=== PATIENT | female | born 1990 | race American Indian/Alaskan Native ===

== ENCOUNTER 2016-10-02 00:45 | Emergency (ER) | payer MEDICAID ==
[2016-10-02 01:46] VITALS: BP 145/93
[2016-10-02 02:47] LABS: Basophils % (Auto) 0.1 % (0.0-1.8); Hemoglobin 11.8 gm/dl (10.1-14.3); Mean Corpuscular HGB Conc 32 % (30-34); Mean Corpuscular Volume 80 fl (79-97); Platelet Count 436 K/mm3 (140-440); Red Blood Count 4.65 M/mm3 (3.65-5.03); Red Cell Distribution Width 17.2 % (13.2-15.2); White Blood Count 15.8 K/mm3 (4.5-11.0)
[2016-10-02 02:49] LABS: Mean Corpuscular Hemoglobin 25 pg (28-32)
[2016-10-02 03:06] LABS: Blood Urea Nitrogen 7 mg/dL (7-17); Calcium 8.8 mg/dL (8.4-10.2); Carbon Dioxide 20 mmol/L (22-30); Glucose 104 mg/dL (65-100)
[2016-10-02 04:21] LABS: Anion Gap 19 mmol/L; Chloride 106.6 mmol/L (98-107); Potassium 3.3 mmol/L (3.6-5.0); Sodium 142 mmol/L (137-145)
== END 2016-10-02 02:30 ==
LOC: ED 00:45
DX: R51 Headache (principal); R46.89 Other symptoms and signs involving appearance and behavior; Z53.21 Procedure and treatment not carried out due to patient leaving prior to being seen by health care provider
CPT/HCPCS: 36415; 80048; 85025; G0480; 80320

== ENCOUNTER 2016-10-08 08:55 | Emergency (ER) | payer MEDICAID ==
[2016-10-08 09:06] VITALS: BP 141/88
[2016-10-08 09:52] LABS: Bacteria,Urine 1+ /HPF (Negative); Bilirubin,Urine NEG (Negative); Blood,Urine NEG (Negative); Ketones,Urine 20 mg/dL (Negative); Leukocyte Esterase,Urine LG (Negative); Mucus,Urine FEW /HPF; Nitrite,Urine NEG (Negative); Urobilinogen,Urine < 2.0 mg/dL (<2.0)
[2016-10-08] MEDS ORDERED: TYLENOL #3 PO ONE (10:53)
--- NOTE | 2016-10-08 11:09 | Emergency Department Report ---
ED ENT HPI - General Chief complaint: Dental/Oral Stated complaint: UTI / POSS TOOTH ABCESS Time Seen by Provider: 10/08/16 10:26 Source: patient Mode of arrival: Ambulatory Limitations: No Limitations - History of Present Illness MD complaint: tooth pain - Related Data Previous Rx's Medication Instructions Recorded Last Taken Type Benzocaine/Menthol [Cepacol Sore 1 each MM QID #20 lozenge 01/18/15 Unknown Rx Throat Lozenge] Clindamycin [Clindamycin CAP] 300 mg PO Q6H #28 capsule 11/18/15 Unknown Rx Ketorolac [Toradol] 10 mg PO Q6H PRN #20 tablet 11/18/15 Unknown Rx Amoxicillin/K Clav Tab [Augmentin 1 tab PO Q12HR #14 tab 01/14/16 Unknown Rx 875 mg] HYDROcodone/APAP 7.5-325 [[place]] 15 ml PO Q4HR PRN #120 ml 01/14/16 Unknown Rx Ibuprofen [Motrin 800 MG tab] 800 mg PO Q8HR PRN #10 tablet 01/14/16 Unknown Rx Amoxicillin [Amoxicillin TAB] 875 mg PO BID #20 tablet 05/05/16 Unknown Rx metroNIDAZOLE [Flagyl] 500 mg PO Q12HR #10 tab 05/05/16 Unknown Rx Cephalexin [Keflex] 500 mg PO Q12HR #14 cap 05/16/16 Unknown Rx Hydrocortisone 1% [Hydrocortisone 1 applicatio TP TID #1 tube 05/16/16 Unknown Rx 1% CREAM] Allergies Allergy/AdvReac Type Severity Reaction Status Date / Time No Known Allergies Allergy Verified 10/08/16 09:01 ED Dental HPI - General Chief complaint: Dental/Oral Stated complaint: UTI / POSS TOOTH ABCESS Time Seen by Provider: 10/08/16 10:26 Source: patient Mode of arrival: Ambulatory Limitations: No Limitations - Related Data Previous Rx's Medication Instructions Recorded Last Taken Type Benzocaine/Menthol [Cepacol Sore 1 each MM QID #20 lozenge 01/18/15 Unknown Rx Throat Lozenge] Clindamycin [Clindamycin CAP] 300 mg PO Q6H #28 capsule 11/18/15 Unknown Rx Ketorolac [Toradol] 10 mg PO Q6H PRN #20 tablet 11/18/15 Unknown Rx Amoxicillin/K Clav Tab [Augmentin 1 tab PO Q12HR #14 tab 01/14/16 Unknown Rx 875 mg] HYDROcodone/APAP 7.5-325 [[place]] 15 ml PO Q4HR PRN #120 ml 01/14/16 Unknown Rx Ibuprofen [Motrin 800 MG tab] 800 mg PO Q8HR PRN #10 tablet 01/14/16 Unknown Rx Amoxicillin [Amoxicillin TAB] 875 mg PO BID #20 tablet 05/05/16 Unknown Rx metroNIDAZOLE [Flagyl] 500 mg PO Q12HR #10 tab 05/05/16 Unknown Rx Cephalexin [Keflex] 500 mg PO Q12HR #14 cap 05/16/16 Unknown Rx Hydrocortisone 1% [Hydrocortisone 1 applicatio TP TID #1 tube 05/16/16 Unknown Rx 1% CREAM] Allergies Allergy/AdvReac Type Severity Reaction Status Date / Time No Known Allergies Allergy Verified 10/08/16 09:01 ED Review of Systems ROS: Stated complaint: UTI / POSS TOOTH ABCESS Other details as noted in HPI ED Past Medical Hx - Past Medical History Hx Seizures: Yes (Ghazal) - Surgical History Additional Surgical History: x1 - Social History Smoking Status: Never Smoker Substance Use Type: None - Medications Home Medications: Home Medications Medication Instructions Recorded Confirmed Last Taken Type Benzocaine/Menthol [Cepacol Sore 1 each MM QID #20 lozenge 01/18/15 Unknown Rx Throat Lozenge] Clindamycin [Clindamycin CAP] 300 mg PO Q6H #28 capsule 11/18/15 Unknown Rx Ketorolac [Toradol] 10 mg PO Q6H PRN #20 tablet 11/18/15 Unknown Rx Amoxicillin/K Clav Tab [Augmentin 1 tab PO Q12HR #14 tab 01/14/16 Unknown Rx 875 mg] HYDROcodone/APAP 7.5-325 [[place]] 15 ml PO Q4HR PRN #120 ml 01/14/16 Unknown Rx Ibuprofen [Motrin 800 MG tab] 800 mg PO Q8HR PRN #10 tablet 01/14/16 Unknown Rx Amoxicillin [Amoxicillin TAB] 875 mg PO BID #20 tablet 05/05/16 Unknown Rx metroNIDAZOLE [Flagyl] 500 mg PO Q12HR #10 tab 05/05/16 Unknown Rx Cephalexin [Keflex] 500 mg PO Q12HR #14 cap 05/16/16 Unknown Rx Hydrocortisone 1% [Hydrocortisone 1 applicatio TP TID #1 tube 05/16/16 Unknown Rx 1% CREAM] ED Physical Exam - General Limitations: No Limitations ED Course Vital Signs 10/08/16 09:02 Temperature 98.1 F Pulse Rate 83 Respiratory 20 Rate Blood Pressure 141/88 O2 Sat by Pulse 100 Oximetry Critical care attestation.: If time is entered above; I have spent that time in minutes in the direct care of this critically ill patient, excluding procedure time. ED Disposition Condition: Stable Referrals: PRIMARY CARE, [Primary Care Provider] - 3-5 Days
--- NOTE | 2016-10-08 12:04 | Emergency Department Report ---
Entered by SARATH SOUZA, acting as scribe for VICTOR HUGO KO PA. ED ENT HPI - General Chief complaint: Dental/Oral Stated complaint: UTI / POSS TOOTH ABCESS Time Seen by Provider: 10/08/16 10:26 Source: patient Mode of arrival: Ambulatory Limitations: No Limitations - History of Present Illness Initial comments: 26 year old female with a PMHx of seizures presents to the ED c/o of right jaw pain that began yesterday secondary to having tooth #29 dental pain that began a month ago. Associated symptoms includes right jaw swelling that began overnight, mild nausea but no vomiting, and a subjective fever, but denies headache and vomiting. Pt states that she cannot chew food due to pain, which she rates a 8 out of 10 in severity. She is able to speak in full sentences and notes that pain radiates to the left side of her jaw. She states that she is currently non-complaint with Keppra after running after out of her medication. LMP 10/04/2016. Aslo c/o mild dysruia x2 days, no fever, chills, no flank pian, no suprapubic pain. Non toxic appearing. MD complaint: tooth pain Onset/Timin -: days(s) Location: tooth # (29) Severity: moderate Severity scale (0 -10): 10 Quality: aching, constant Consistency: constant Worsens with: eating (trouble chewing food) Context- Dental: other (cavity present on tooth #29 ) Associated Symptoms: fever (subjective), toothache (that began 1 month ago), other (chills, right jaw sweilling that began overnight, nausea). denies: pain with swallowing - Related Data Previous Rx's Medication Instructions Recorded Last Taken Type Benzocaine/Menthol [Cepacol Sore 1 each MM QID #20 lozenge 01/18/15 Unknown Rx Throat Lozenge] Clindamycin [Clindamycin CAP] 300 mg PO Q6H #28 capsule 11/18/15 Unknown Rx Ketorolac [Toradol] 10 mg PO Q6H PRN #20 tablet 11/18/15 Unknown Rx Amoxicillin/K Clav Tab [Augmentin 1 tab PO Q12HR #14 tab 01/14/16 Unknown Rx 875 mg] HYDROcodone/APAP 7.5-325 [[place]] 15 ml PO Q4HR PRN #120 ml 01/14/16 Unknown Rx metroNIDAZOLE [Flagyl] 500 mg PO Q12HR #10 tab 05/05/16 Unknown Rx Cephalexin [Keflex] 500 mg PO Q12HR #14 cap 05/16/16 Unknown Rx Hydrocortisone 1% [Hydrocortisone 1 applicatio TP TID #1 tube 05/16/16 Unknown Rx 1% CREAM] Acetaminophen/Codeine [Tylenol #3] 1 tab PO Q6H PRN #10 tab 10/08/16 Unknown Rx Amoxicillin [Amoxicillin TAB] 875 mg PO BID #20 tablet 10/08/16 Unknown Rx Chlorhexidine Mouthwash [Peridex] 118 ml MM BID #1 bottle 10/08/16 Unknown Rx Ibuprofen [Motrin 800 MG tab] 800 mg PO Q8HR PRN #10 tablet 10/08/16 Unknown Rx Nitrofurantoin [place]/M-Cryst 100 mg PO Q12HR #14 capsule 10/08/16 Unknown Rx [Macrobid CAP] Allergies Allergy/AdvReac Type Severity Reaction Status Date / Time No Known Allergies Allergy Verified 10/08/16 09:01 ED Dental HPI - General Chief complaint: Dental/Oral Stated complaint: UTI / POSS TOOTH ABCESS Time Seen by Provider: 10/08/16 10:26 Source: patient Mode of arrival: Ambulatory Limitations: No Limitations - History of Present Illness MD complaint: tooth pain, other (right jaw pain) Onset/Timin -: days(s) Severity: moderate Quality: aching Consistency: constant Worsens with: eating, chewing Context- Dental: other (dental abscess) Dental Associated Symptons: Yes: Fever. No: Headache, Sore Throat - Related Data Previous Rx's Medication Instructions Recorded Last Taken Type Benzocaine/Menthol [Cepacol Sore 1 each MM QID #20 lozenge 01/18/15 Unknown Rx Throat Lozenge] Clindamycin [Clindamycin CAP] 300 mg PO Q6H #28 capsule 11/18/15 Unknown Rx Ketorolac [Toradol] 10 mg PO Q6H PRN #20 tablet 11/18/15 Unknown Rx Amoxicillin/K Clav Tab [Augmentin 1 tab PO Q12HR #14 tab 01/14/16 Unknown Rx 875 mg] HYDROcodone/APAP 7.5-325 [[place]] 15 ml PO Q4HR PRN #120 ml 01/14/16 Unknown Rx metroNIDAZOLE [Flagyl] 500 mg PO Q12HR #10 tab 05/05/16 Unknown Rx Cephalexin [Keflex] 500 mg PO Q12HR #14 cap 05/16/16 Unknown Rx Hydrocortisone 1% [Hydrocortisone 1 applicatio TP TID #1 tube 05/16/16 Unknown Rx 1% CREAM] Acetaminophen/Codeine [Tylenol #3] 1 tab PO Q6H PRN #10 tab 10/08/16 Unknown Rx Amoxicillin [Amoxicillin TAB] 875 mg PO BID #20 tablet 10/08/16 Unknown Rx Chlorhexidine Mouthwash [Peridex] 118 ml MM BID #1 bottle 10/08/16 Unknown Rx Ibuprofen [Motrin 800 MG tab] 800 mg PO Q8HR PRN #10 tablet 10/08/16 Unknown Rx Nitrofurantoin [place]/M-Cryst 100 mg PO Q12HR #14 capsule 10/08/16 Unknown Rx [Macrobid CAP] Allergies Allergy/AdvReac Type Severity Reaction Status Date / Time No Known Allergies Allergy Verified 10/08/16 09:01 ED Review of Systems Comment: All other systems reviewed and negative Constitutional: chills, fever (subjective) ENT: dental pain (tooth #29). denies: throat pain Gastrointestinal: nausea. denies: vomiting Genitourinary: dysuria, frequency Skin: other (right jaw edema) Neurological: denies: headache ED Past Medical Hx - Past Medical History Hx Seizures: Yes (Ghazal) - Surgical History Additional Surgical History: x1 - Social History Smoking Status: Never Smoker Substance Use Type: None - Medications Home Medications: Home Medications Medication Instructions Recorded Confirmed Last Taken Type Benzocaine/Menthol [Cepacol Sore 1 each MM QID #20 lozenge 01/18/15 Unknown Rx Throat Lozenge] Clindamycin [Clindamycin CAP] 300 mg PO Q6H #28 capsule 11/18/15 Unknown Rx Ketorolac [Toradol] 10 mg PO Q6H PRN #20 tablet 11/18/15 Unknown Rx Amoxicillin/K Clav Tab [Augmentin 1 tab PO Q12HR #14 tab 01/14/16 Unknown Rx 875 mg] HYDROcodone/APAP 7.5-325 [[place]] 15 ml PO Q4HR PRN #120 ml 01/14/16 Unknown Rx metroNIDAZOLE [Flagyl] 500 mg PO Q12HR #10 tab 05/05/16 Unknown Rx Cephalexin [Keflex] 500 mg PO Q12HR #14 cap 05/16/16 Unknown Rx Hydrocortisone 1% [Hydrocortisone 1 applicatio TP TID #1 tube 05/16/16 Unknown Rx 1% CREAM] Acetaminophen/Codeine [Tylenol #3] 1 tab PO Q6H PRN #10 tab 10/08/16 Unknown Rx Amoxicillin [Amoxicillin TAB] 875 mg PO BID #20 tablet 10/08/16 Unknown Rx Chlorhexidine Mouthwash [Peridex] 118 ml MM BID #1 bottle 10/08/16 Unknown Rx Ibuprofen [Motrin 800 MG tab] 800 mg PO Q8HR PRN #10 tablet 10/08/16 Unknown Rx Nitrofurantoin [place]/M-Cryst 100 mg PO Q12HR #14 capsule 10/08/16 Unknown Rx [Macrobid CAP] ED Physical Exam - General Limitations: No Limitations General appearance: alert, in no apparent distress, other (Pt is able to speak in full sentences) - Head Head exam: Present: atraumatic, normocephalic - Eye Eye exam: Present: normal appearance, EOMI - ENT ENT exam: Present: normal exam, mucous membranes moist, other (NO induration on floor of mouth below tongue on palpation, no ludwigs angina on clincal exam, no drooling, no trismus) - Expanded ENT Exam Expanded Mouth exam: Present: other (no induration is floor of mouth but induration present adjacent to tooth #29, no cellulitis) Throat exam: Positive: normal inspection (no CLINICAL EDUCATOR, uvula midline), other (uvula is midline, no peritonsillar abscess present, oral pharynx patent and open) - Neck Neck exam: Present: normal inspection, full ROM. Absent: lymphadenopathy - Respiratory Respiratory exam: Present: normal lung sounds bilaterally. Absent: respiratory distress - Cardiovascular Cardiovascular Exam: Present: regular rate, normal rhythm - GI/Abdominal GI/Abdominal exam: Present: soft. Absent: distended - Extremities Exam Extremities exam: Present: normal inspection, full ROM - Back Exam Back exam: Present: normal inspection, full ROM, other (no cva pain on exam) - Neurological Exam Neurological exam: Present: alert, oriented X3, CN II-XII intact, normal gait - Psychiatric Psychiatric exam: Present: normal affect, normal mood - Skin Skin exam: Present: warm, dry, intact, other (right jaw edema, no induration is floor of mouth but induration present adjacent to tooth #29, no cellulitis, no peritonsillar abscess) ED Course Vital Signs 10/08/16 10/08/16 09:02 11:00 Temperature 98.1 F Pulse Rate 83 Respiratory 20 20 Rate Blood Pressure 141/88 O2 Sat by Pulse 100 Oximetry ED Medical Decision Making - Medical Decision Making A/P: Dental cavity, small dental abscess, UTI, keppra refill 1-Motrin, Tylenol 3, amoxicillin 10 days, Peridex mouthwash 2-patient advised to follow up as soon as possible for dental cavity. I advised patient that lack of follow-up and untreated dental cavity can result in infection of the face and jaw and if left untreated can progress to sepsis and become lethal. Patient understood these instructions and agreed to follow- up on outpatient basis with dentist as soon as possible. States she can see a dentisit on monday 3-advised to return to ED [facility] for any significant bleeding pus drainage from oral cavity inability to tolerate by mouth, dyspnea shortness of breath muffled voice and/or stridor 4- will treat empirically for UTI with macrobid, based on symptoms and UA 6- [facility] Disposition Clinical Impression: Dental abscess, Dental caries Disposition: DISCHARGED TO HOME OR SELFCARE Is pt being admited?: No Does the pt Need Aspirin: No Condition: Stable Instructions: Urinary Tract Infection in Women (ED), Dental Abscess (ED), Dental Caries (ED), Toothache (ED) Additional Instructions: [email or web address] Prescriptions: Acetaminophen/Codeine [Tylenol #3] 1 tab PO Q6H PRN #10 tab PRN Reason: Toothache Amoxicillin [Amoxicillin TAB] 875 mg PO BID #20 tablet Chlorhexidine Mouthwash [Peridex] 118 ml MM BID #1 bottle Ibuprofen [Motrin 800 MG tab] 800 mg PO Q8HR PRN #10 tablet PRN Reason: anti-inflammatory/pain/fever Nitrofurantoin [place]/M-Cryst [Macrobid CAP] 100 mg PO Q12HR #14 capsule Referrals: [facility] [Outside] - 3-5 Days Forms: Work/School Release Form(ED) This documentation as recorded by the HARLEY mcknight JASMINE,accurately reflects the service I personally performed and the decisions made by ,VICTOR HUGO KO, PA.
== END 2016-10-08 11:35 | disposition home or self-care (01) ==
LOC: ED 08:55
DX: K04.7 Periapical abscess without sinus (principal); K02.9 Dental caries, unspecified
CPT/HCPCS: 81001; 81025; 99283

== ENCOUNTER 2016-11-04 03:39 | Emergency (ER) | payer MEDICAID ==
[2016-11-04 04:51] LABS: Basophils % (Auto) 0.2 % (0.0-1.8); Eosinophils % (Auto) 0.2 % (0.0-4.3); Hematocrit 34.4 % (30.3-42.9); Hemoglobin 10.9 gm/dl (10.1-14.3); Mean Corpuscular HGB Conc 32 % (30-34); Mean Corpuscular Volume 80 fl (79-97); Platelet Count 329 K/mm3 (140-440); Red Cell Distribution Width 16.6 % (13.2-15.2)
[2016-11-04 04:53] LABS: Mean Corpuscular Hemoglobin 25 pg (28-32)
[2016-11-04 05:02] LABS: Anion Gap 20 mmol/L; Blood Urea Nitrogen 8 mg/dL (7-17); Calcium 8.8 mg/dL (8.4-10.2); Carbon Dioxide 22 mmol/L (22-30); Chloride 103.5 mmol/L (98-107); Glucose 97 mg/dL (65-100); Potassium 3.4 mmol/L (3.6-5.0); Sodium 142 mmol/L (137-145)
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
[2016-11-04 06:33] LABS: Urine Drugs of Abuse Note Disclamer
[2016-11-04 06:48] LABS: Bilirubin,Urine NEG (Negative); Blood,Urine NEG (Negative); Ketones,Urine TR mg/dL (Negative); Leukocyte Esterase,Urine TR (Negative); Mucus,Urine FEW /HPF; Nitrite,Urine NEG (Negative); Protein,Urine <15 mg/dL mg/dL (Negative); Urobilinogen,Urine < 2.0 mg/dL (<2.0)
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
[2016-11-04] MEDS ORDERED: XYLOCAINE 1%/ EPI 1:100,000 INFILTRATI ONE (07:33)
[2016-11-04] MEDS ORDERED: FUL-GLO OP ONE ×2 (07:35→09:56)
[2016-11-04] MEDS ORDERED: TETRACAINE 0.5% ONE (07:35)
[2016-11-04] MEDS ORDERED: BSS ONE (07:35)
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
[2016-11-04] MEDS ORDERED: ZOFRAN IV ONE (07:52)
[2016-11-04] MEDS ORDERED: MORPHINE IV ONE (07:52)
[2016-11-04] MEDS ORDERED: K-DUR PO ONE (11:00)
[2016-11-04 11:18] VITALS: BP 120/63
== END 2016-11-04 11:26 | disposition home or self-care (01) ==
LOC: ED 03:39
DX: S06.0X9A Concussion with loss of consciousness of unspecified duration, initial encounter (principal); S05.41XA Penetrating wound of orbit with or without foreign body, right eye, initial encounter; S00.11XA Contusion of right eyelid and periocular area, initial encounter; H11.31 Conjunctival hemorrhage, right eye; S00.211A Abrasion of right eyelid and periocular area, initial encounter; F10.129 Alcohol abuse with intoxication, unspecified; E87.6 Hypokalemia; Y08.89XA Assault by other specified means, initial encounter; Y93.9 Activity, unspecified; Y92.89 Other specified places as the place of occurrence of the external cause; Y99.9 Unspecified external cause status
CPT/HCPCS: 12013; 36415; 70450; 70486; 71010; 72125; 72170; 80048; 80307; 81001; 84703; 85025; 96374; 96375; 99285; G0480; J2270; J2405; 80320

== ENCOUNTER 2016-11-10 13:40 | Emergency (ER) | payer MEDICAID ==
[2016-11-10 14:26] VITALS: BP 120/76
--- NOTE | 2016-11-10 14:41 | Emergency Department Report ---
Suture/Staple Removal - HPI Chief Complaint: Laceration/Recheck/Suture Stated Complaint: SUTURE REMOVAL Time Seen by Provider: 11/10/16 14:38 When Sutures or Joanna Placed: 5-7 Days Ago Wound Location: right lateral corner of eye ED Review of Systems ROS: Stated complaint: SUTURE REMOVAL Other details as noted in HPI Comment: All other systems reviewed and negative ED Past Medical Hx - Past Medical History Hx Seizures: Yes (Keppra) - Surgical History Additional Surgical History: x1 - Social History Smoking Status: Never Smoker Substance Use Type: None - Medications Home Medications: Home Medications Medication Instructions Recorded Confirmed Last Taken Type HYDROcodone/APAP 5-325 [[place] 1 each PO Q6HR PRN #20 tablet 11/04/16 11/10/16 Unknown Rx 5/325] Suture Removal Exam - Exam General: Vital signs noted. No distress. Alert and acting appropriately. Wound: No Pathologic Erythema, No Tenderness, No Drainage, No Pus, No Wound Dehiscence Other Systems: All other systems reviewed and are unremarkable. ED Course Vital Signs 11/10/16 14:23 Temperature 98.3 F Pulse Rate 72 Respiratory 19 Rate Blood Pressure 120/76 O2 Sat by Pulse 100 Oximetry ED Recheck MDM - Medical Decision Making Patient has been evaluated by this provider fast track. With a was removed 3 sutures out of the right lateral corner of her eye. Patient has no other complaints at this time. Critical care attestation.: If time is entered above; I have spent that time in minutes in the direct care of this critically ill patient, excluding procedure time. ED Disposition Clinical Impression: Encounter for removal of sutures Disposition: DISCHARGED TO HOME OR SELFCARE Is pt being admited?: No Does the pt Need Aspirin: No Additional Instructions: You can clean the area with warm soap and water. Referrals: PRIMARY CARE, [Primary Care Provider] - 3-5 Days
== END 2016-11-10 14:45 | disposition home or self-care (01) ==
LOC: ED 13:40
DX: S01.91XD Laceration without foreign body of unspecified part of head, subsequent encounter (principal); R56.9 Unspecified convulsions; X58.XXXD Exposure to other specified factors, subsequent encounter; Y99.9 Unspecified external cause status; Y92.9 Unspecified place or not applicable

== ENCOUNTER 2017-01-02 23:58 | Emergency (ER) | payer MEDICAID ==
[2017-01-03 04:10] LABS: Bacteria,Urine 1+ /HPF (Negative); Bilirubin,Urine NEG (Negative); Blood,Urine NEG (Negative); Ketones,Urine TR mg/dL (Negative); Leukocyte Esterase,Urine MOD (Negative); Mucus,Urine FEW /HPF; Nitrite,Urine NEG (Negative); Protein,Urine <15 mg/dL mg/dL (Negative)
[2017-01-03] MEDS ORDERED: XYLOCAINE 1% MPF 5 mL INFILTRATI ONE (04:30)
[2017-01-03] MEDS ORDERED: ROCEPHIN IM STA (04:30)
--- NOTE | 2017-01-03 04:30 | Emergency Department Report ---
ED Female HPI - General Chief complaint: Urogenital-Female Stated complaint: UTI Time Seen by Provider: 01/03/17 03:49 Source: patient, family Mode of arrival: Ambulatory Limitations: No Limitations - History of Present Illness Initial comments: Patient here reports that she thinks she has a urinary tract infection. She reports that her urine is dark and she has some discomfort today urinated. She reports that she had episode of dysuria. She said she had some itching in in her vaginal area before cycle which has resolved. Patient is just coming off her cycle. She said her cycle ended yesterday and itching went away. Denies any abdominal or back pain. Denies any vaginal discharge. She has no concerns for STDs. She has nose concerns her because she said she is not sexually active at present. Denies any fever or chills. Denies any nausea or vomiting. Denies any pain at present. MD Complaint: dysuria Onset/Timin -: days(s) Severity scale (0 -10): 0 Are you Now?: No Last Menstrual Period: 12/31/16 EDC: 10/07/17 Associated Symptoms: dysuria, other (dark urine). denies: vaginal discharge, vaginal bleeding, abdominal pain, nausea/vomiting, fever/chills, headaches, loss of appetite, hematuria, rash, seizure, shortness of breath, syncope, weakness - Related Data Sexually active: No Previous Rx's Medication Instructions Recorded Last Taken Type HYDROcodone/APAP 5-325 [[place] 1 each PO Q6HR PRN #20 tablet 11/04/16 Unknown Rx 5/325] Nitrofurantoin [place]/M-Cryst 100 mg PO Q12HR #14 capsule 01/03/17 Unknown Rx [Macrobid CAP] Allergies Allergy/AdvReac Type Severity Reaction Status Date / Time No Known Allergies Allergy Verified 11/10/16 14:22 ED Review of Systems ROS: Stated complaint: UTI Other details as noted in HPI Comment: All other systems reviewed and negative Constitutional: denies: chills, fever Respiratory: no symptoms reported Cardiovascular: denies: chest pain, palpitations, edema, syncope Gastrointestinal: denies: abdominal pain, nausea, vomiting Genitourinary: dysuria, other (arc urine). denies: urgency, frequency, hematuria, discharge, abnormal menses Musculoskeletal: denies: back pain, joint swelling, arthralgia, myalgia Skin: denies: rash Neurological: denies: headache, weakness, numbness, paresthesias, confusion, abnormal gait, vertigo ED Past Medical Hx - Past Medical History Previous Medical History?: Yes Hx Seizures: Yes (Ghazal) - Surgical History Past Surgical History?: Yes Additional Surgical History: x1 - Family History Family history: hypertension - Social History Smoking Status: Former Smoker Substance Use Type: None - Medications Home Medications: Home Medications Medication Instructions Recorded Confirmed Last Taken Type HYDROcodone/APAP 5-325 [[place] 1 each PO Q6HR PRN #20 tablet 11/04/16 11/10/16 Unknown Rx 5/325] Nitrofurantoin [place]/M-Cryst 100 mg PO Q12HR #14 capsule 01/03/17 Unknown Rx [Macrobid CAP] ED Physical Exam - General Limitations: No Limitations General appearance: alert, in no apparent distress - Head Head exam: Present: atraumatic, normocephalic, normal inspection - Neck Neck exam: Present: normal inspection, full ROM. Absent: tenderness, lymphadenopathy - Respiratory Respiratory exam: Present: normal lung sounds bilaterally. Absent: respiratory distress, chest wall tenderness - Cardiovascular Cardiovascular Exam: Present: regular rate, normal rhythm, normal heart sounds - GI/Abdominal GI/Abdominal exam: Present: soft, normal bowel sounds. Absent: distended, tenderness, guarding, rebound, rigid - Extremities Exam Extremities exam: Present: normal inspection, full ROM, normal capillary refill. Absent: tenderness, pedal edema, joint swelling, calf tenderness - Back Exam Back exam: Present: normal inspection, full ROM. Absent: tenderness, CVA tenderness (R), CVA tenderness (L), muscle spasm, paraspinal tenderness, vertebral tenderness, rash noted - Neurological Exam Neurological exam: Present: alert, oriented X3, normal gait, reflexes normal. Absent: motor sensory deficit - Psychiatric Psychiatric exam: Present: normal affect, normal mood - Skin Skin exam: Present: warm, dry, intact, normal color. Absent: rash ED Course Vital Signs 01/03/17 01/03/17 02:09 05:31 Temperature 98.6 F Pulse Rate 97 H 73 Respiratory 20 18 Rate Blood Pressure 126/81 Blood Pressure 133/84 [Left] O2 Sat by Pulse 99 100 Oximetry - Reevaluation(s) Reevaluation #1: 01/03/17 05:19 Patient with urinary tract infection and she was given Rocephin 1 g IM and emergency room. ED Medical Decision Making - Lab Data Lab Results 01/03/17 Range/Units 02:17 Urine Color Yellow (Yellow) Urine Turbidity Clear (Clear) Urine pH 6.0 (5.0-7.0) Ur Specific [place] 1.009 (1.003-1.030) Urine Protein <15 mg/dl (Negative) mg/dL Urine Glucose (UA) Neg (Negative) mg/dL Urine Ketones Tr (Negative) mg/dL Urine Blood Neg (Negative) Urine Nitrite Neg (Negative) Urine Bilirubin Neg (Negative) Urine Urobilinogen 2.0 (<2.0) mg/dL Ur Leukocyte Esterase Mod (Negative) Urine WBC (Auto) 4.0 (0.0-6.0) /HPF Urine RBC (Auto) 4.0 (0.0-6.0) /HPF U Epithel Cells (Auto) 2.0 (0-13.0) /HPF Urine Bacteria (Auto) 1+ (Negative) /HPF Urine Mucus Few /HPF Urine culture pending Critical care attestation.: If time is entered above; I have spent that time in minutes in the direct care of this critically ill patient, excluding procedure time. ED Disposition Clinical Impression: Acute cystitis without hematuria, Dysuria Disposition: - TO HOME OR SELFCARE Is pt being admited?: No Does the pt Need Aspirin: No Condition: Stable Instructions: Urinary Tract Infection in Women (ED), Dysuria (ED) Additional Instructions: Please increase her fluid intake to 2-3 L of water per day. Take antibiotic as prescribed. Up with your primary care physician in 7-10 days and if he do not have one you can follow up at [facility] Prescriptions: Nitrofurantoin [place]/M-Cryst [Macrobid CAP] 100 mg PO Q12HR #14 capsule Referrals: [facility] [Outside] - 7-10 days PRIMARY CARE, [Primary Care Provider] - 7-10 days Forms: Accompanied Note, Work/School Release Form(ED)
[2017-01-03 05:32] VITALS: BP 133/84
== END 2017-01-03 05:33 | disposition home or self-care (01) ==
LOC: ED 23:58
DX: N30.00 Acute cystitis without hematuria (principal); I10 Essential (primary) hypertension; Z87.891 Personal history of nicotine dependence
CPT/HCPCS: 81001; 87086; 96372; 99283; J0696

== ENCOUNTER 2017-01-12 03:13 | Emergency (ER) | payer MEDICAID ==
[2017-01-12 03:48] LABS: Basophils % (Auto) 0.5 % (0.0-1.8); Eosinophils % (Auto) 0.7 % (0.0-4.3); Hematocrit 35.5 % (30.3-42.9); Hemoglobin 11.5 gm/dl (10.1-14.3); Mean Corpuscular HGB Conc 33 % (30-34); Mean Corpuscular Hemoglobin 26 pg (28-32); Mean Corpuscular Volume 80 fl (79-97); Platelet Count 377 K/mm3 (140-440); Red Blood Count 4.43 M/mm3 (3.65-5.03); Red Cell Distribution Width 14.6 % (13.2-15.2); White Blood Count 7.2 K/mm3 (4.5-11.0)
[2017-01-12 04:07] LABS: Anion Gap 16 mmol/L; Blood Urea Nitrogen 11 mg/dL (7-17); Calcium 9.1 mg/dL (8.4-10.2); Carbon Dioxide 25 mmol/L (22-30); Chloride 101.5 mmol/L (98-107); Glucose 108 mg/dL (65-100); Potassium 3.9 mmol/L (3.6-5.0); Sodium 139 mmol/L (137-145)
--- NOTE | 2017-01-12 08:12 | Emergency Department Report ---
ED Seizure HPI - General Chief Complaint: Syncope Stated Complaint: SYNCOPAL EPISODE Time Seen by Provider: 01/12/17 08:10 Source: patient Mode of arrival: Ambulatory Limitations: No Limitations - History of Present Illness Initial Comments: Patient presents with her significant other. She has been noncompliant with her Her for one year. She was on Keppra for many years. She was on the way to the bathroom when she developed some shaking movements that were witnessed by her friend. She began to fall but did not have any prolonged loss of consciousness. She is asymptomatic at this time. She stated that she had a minimal headache prior which has resolved. She is asymptomatic at this time. He has had previous neuro imaging without any brain abnormality reported to her. She hasn't had a seizure she says since 2014. Her previous seizures were apparently generalized. Complaint: possible seizure -: Sudden Description of Episode: other (boyfriend states that it was very brief and he couldn't describe it) -: second(s) Witnessed:: Yes Trauma: No Seizure History: known seizure disorder Place: home, work Associated Symptoms: denies other symptoms Treatments Prior to Arrival: none - Related Data Previous Rx's Medication Instructions Recorded Last Taken Type HYDROcodone/APAP 5-325 [[place] 1 each PO Q6HR PRN #20 tablet 11/04/16 Unknown Rx 5/325] Nitrofurantoin [place]/M-Cryst 100 mg PO Q12HR #14 capsule 01/03/17 Unknown Rx [Macrobid CAP] levETIRAcetam [Keppra TAB] 500 mg PO BID #60 tablet 01/12/17 Unknown Rx Allergies Allergy/AdvReac Type Severity Reaction Status Date / Time No Known Allergies Allergy Verified 11/10/16 14:22 ED Review of Systems ROS: Stated complaint: SYNCOPAL EPISODE Other details as noted in HPI Constitutional: denies: chills, fever Eyes: denies: eye pain, eye discharge, vision change ENT: denies: ear pain, throat pain Respiratory: denies: cough, shortness of breath, wheezing Cardiovascular: denies: chest pain, palpitations Endocrine: no symptoms reported Gastrointestinal: denies: abdominal pain, nausea, diarrhea Genitourinary: denies: urgency, dysuria, discharge Musculoskeletal: denies: back pain, joint swelling, arthralgia Skin: denies: rash, lesions Neurological: headache (now resolved). denies: weakness, paresthesias Psychiatric: denies: anxiety, depression Hematological/Lymphatic: denies: easy bleeding, easy bruising ED Past Medical Hx - Past Medical History Previous Medical History?: Yes Hx Seizures: Yes (Keppra) - Surgical History Past Surgical History?: Yes Additional Surgical History: x1 - Social History Smoking Status: Never Smoker Substance Use Type: Alcohol - Medications Home Medications: Home Medications Medication Instructions Recorded Confirmed Last Taken Type HYDROcodone/APAP 5-325 [[place] 1 each PO Q6HR PRN #20 tablet 11/04/16 11/10/16 Unknown Rx 5/325] Nitrofurantoin [place]/M-Cryst 100 mg PO Q12HR #14 capsule 01/03/17 Unknown Rx [Macrobid CAP] levETIRAcetam [Keppra TAB] 500 mg PO BID #60 tablet 01/12/17 Unknown Rx ED Physical Exam - General Limitations: No Limitations General appearance: alert, in no apparent distress - Head Head exam: Present: atraumatic, normocephalic - Eye Eye exam: Present: normal appearance, PERRL, EOMI. Absent: scleral icterus - ENT ENT exam: Present: mucous membranes moist - Neck Neck exam: Present: normal inspection. Absent: tenderness, meningismus - Respiratory Respiratory exam: Present: normal lung sounds bilaterally. Absent: respiratory distress - Cardiovascular Cardiovascular Exam: Present: regular rate, normal rhythm. Absent: systolic murmur, diastolic murmur, rubs, gallop - GI/Abdominal GI/Abdominal exam: Present: soft, normal bowel sounds. Absent: distended, tenderness, guarding, rebound, rigid - Extremities Exam Extremities exam: Present: normal inspection - Back Exam Back exam: Present: normal inspection - Neurological Exam Neurological exam: Present: alert, oriented X3, CN II-XII intact. Absent: motor sensory deficit - Psychiatric Psychiatric exam: Present: normal affect, normal mood - Skin Skin exam: Present: warm, dry, intact, normal color. Absent: rash ED Course Vital Signs 01/12/17 01/12/17 03:17 08:12 Temperature 98.7 F 98.1 F Pulse Rate 97 H 72 Respiratory 20 17 Rate Blood Pressure 137/80 Blood Pressure 118/70 [Left] O2 Sat by Pulse 100 100 Oximetry - Reevaluation(s) Reevaluation #1: Patient was observed without further incident. She was restarted on oral Keppra. 01/12/17 08:32 ED Medical Decision Making - Lab Data Result diagrams: 01/12/17 03:35 01/12/17 03:35 Laboratory Results - last 24 hr 01/12/17 01/12/17 01/12/17 03:35 03:35 03:35 WBC 7.2 RBC 4.43 Hgb 11.5 Hct 35.5 MCV 80 MCH 26 L MCHC 33 RDW 14.6 Plt Count 377 Lymph % (Auto) 29.7 [place] % (Auto) 10.4 H Eos % (Auto) 0.7 Baso % (Auto) 0.5 Lymph # 2.1 [place] # 0.8 Eos # 0.1 Baso # 0.0 Seg Neutrophils % 58.7 Seg Neutrophils # 4.2 Sodium 139 Potassium 3.9 Chloride 101.5 Carbon Dioxide 25 Anion Gap 16 BUN 11 Creatinine 0.4 L Estimated GFR > 60 BUN/Creatinine Ratio 27.50 Glucose 108 H Calcium 9.1 HCG, Qual Negative - EKG Data -: EKG Interpreted by Nd EKG shows normal: sinus rhythm, axis, intervals, QRS complexes, ST-T waves Rate: normal - EKG Data Interpretation: LVH (somewhat increased voltage left atrial enlargement consider LVH.) Critical care attestation.: If time is entered above; I have spent that time in minutes in the direct care of this critically ill patient, excluding procedure time. ED Disposition Clinical Impression: Seizure, Seizure disorder Disposition: DC-01 TO HOME OR SELFCARE Is pt being admited?: No Does the pt Need Aspirin: No Condition: Stable Instructions: Recurrent Seizures Adult (ED) Additional Instructions: Do not drive until you're cleared by the neurologist. See referral. Rx Keppra. Prescriptions: levETIRAcetam [Keppra TAB] 500 mg PO BID #60 tablet Referrals: PRIMARY MD LUCINDA [Primary Care Provider] - 3-5 Days PREM LINN MD [Staff Physician] - 3-5 Days [facility] [Provider Group] - 3-5 Days Time of Disposition: 08:36
[2017-01-12 08:16] VITALS: BP 118/70
[2017-01-12] MEDS ORDERED: KEPPRA PO ONE (08:36)
== END 2017-01-12 09:08 | disposition home or self-care (01) ==
LOC: ED 03:13
DX: G40.909 Epilepsy, unspecified, not intractable, without status epilepticus (principal)
CPT/HCPCS: 36415; 80048; 84703; 85025; 93005; 93010; 99283

== ENCOUNTER 2017-08-10 19:14 | Emergency (ER) | payer MEDICAID ==
[2017-08-10 21:00] LABS: Bacteria,Urine 1+ /HPF (Negative); Bilirubin,Urine NEG (Negative); Blood,Urine NEG (Negative); Color,Urine Yellow (Yellow); Mucus,Urine 2+ /HPF; Nitrite,Urine NEG (Negative); Protein,Urine <15 mg/dL mg/dL (Negative); Urobilinogen,Urine < 2.0 mg/dL (<2.0)
[2017-08-10 21:01] LABS: HCG Qualitative,Urine Negative (Negative)
--- NOTE | 2017-08-10 22:34 | Emergency Department Report ---
ED Female HPI - General Chief complaint: Urogenital-Female Stated complaint: VAG IRITATION Time Seen by Provider: 08/10/17 21:36 Source: patient Mode of arrival: Ambulatory Limitations: No Limitations - History of Present Illness Initial comments: This is a 27-year-old female nontoxic, well nourished in appearance, no acute signs of distress presents to the ED with c/o of vaginal itching and discomfort x4 days. Patient stated went yesterday to the store and bought OTC monostat as she thinks it can be yeast and has no relief. Patient denies any vaginal discharge, vaginal bleeding, dysuria, polyuria, hematuria, abdominal pain, back pain pain, fever, chills, nausea, vomiting, chest pain or shortness of breath. Patient denies any drug allergies. Past medical history includes seizures. MD Complaint: other (vaginal itching and discomfort) -: days(s) (4) Radiation: non-radiating Severity: mild Severity scale (0 -10): 8 Quality: other (itching) Consistency: constant Improves with: none Worsens with: none Are you Now?: No Last Menstrual Period: 07/17/17 EDC: 04/23/18 Associated Symptoms: denies other symptoms. denies: vaginal discharge, vaginal bleeding, abdominal pain, nausea/vomiting, fever/chills, headaches, loss of appetite, dysuria, hematuria, rash, seizure, shortness of breath, syncope, weakness - Related Data Previous Rx's Medication Instructions Recorded Last Taken Type HYDROcodone/APAP 5-325 [[place] 1 each PO Q6HR PRN #20 tablet 11/04/16 Unknown Rx 5/325] Nitrofurantoin [place]/M-Cryst 100 mg PO Q12HR #14 capsule 01/03/17 Unknown Rx [Macrobid CAP] levETIRAcetam [Keppra TAB] 500 mg PO BID #60 tablet 01/12/17 Unknown Rx Fluconazole [Diflucan TAB] 150 mg PO ONCE #2 tablet 08/10/17 Unknown Rx Allergies Allergy/AdvReac Type Severity Reaction Status Date / Time No Known Allergies Allergy Verified 11/10/16 14:22 ED Review of Systems ROS: Stated complaint: VAG IRITATION Other details as noted in HPI Constitutional: denies: chills, fever Eyes: denies: eye pain, eye discharge, vision change ENT: denies: ear pain, throat pain Respiratory: denies: cough, shortness of breath, wheezing Cardiovascular: denies: chest pain, palpitations Endocrine: no symptoms reported Gastrointestinal: denies: abdominal pain, nausea, diarrhea Genitourinary: other (vaginal itching). denies: urgency, dysuria, discharge Musculoskeletal: denies: back pain, joint swelling, arthralgia Skin: denies: rash, lesions Neurological: denies: headache, weakness, paresthesias Psychiatric: denies: anxiety, depression Hematological/Lymphatic: denies: easy bleeding, easy bruising ED Past Medical Hx - Past Medical History Previous Medical History?: Yes Hx Seizures: Yes (Keppra) - Surgical History Past Surgical History?: Yes Additional Surgical History: x1 - Social History Smoking Status: Current Some Day Smoker Substance Use Type: None - Medications Home Medications: Home Medications Medication Instructions Recorded Confirmed Last Taken Type HYDROcodone/APAP 5-325 [[place] 1 each PO Q6HR PRN #20 tablet 11/04/16 11/10/16 Unknown Rx 5/325] Nitrofurantoin [place]/M-Cryst 100 mg PO Q12HR #14 capsule 01/03/17 Unknown Rx [Macrobid CAP] levETIRAcetam [Keppra TAB] 500 mg PO BID #60 tablet 01/12/17 Unknown Rx Fluconazole [Diflucan TAB] 150 mg PO ONCE #2 tablet 08/10/17 Unknown Rx ED Physical Exam - General Limitations: No Limitations General appearance: alert, in no apparent distress - Head Head exam: Present: atraumatic, normocephalic - Eye Eye exam: Present: normal appearance - ENT ENT exam: Present: mucous membranes moist - Neck Neck exam: Present: normal inspection - Respiratory Respiratory exam: Present: normal lung sounds bilaterally. Absent: respiratory distress - Cardiovascular Cardiovascular Exam: Present: regular rate, normal rhythm. Absent: systolic murmur, diastolic murmur, rubs, gallop - GI/Abdominal GI/Abdominal exam: Present: soft, normal bowel sounds. Absent: distended, tenderness, guarding, rebound, rigid, diminished bowel sounds - Rectal Rectal exam: Present: normal inspection - External exam: Present: normal external exam, other (chaperoned Dominga senior data architect present during exam). Absent: erythema, swelling, lesions, lacerations, ecchymosis, bleeding Speculum exam: Present: normal speculum exam, other (chaperoned Dominga senior data architect present during exam). Absent: erythema, vaginal discharge, cervical discharge, vaginal bleeding, foreign body, tissue, laceration Bi-manual exam: Present: normal bi-manual exam, other (chaperoned Dominga senior data architect present during exam). Absent: cervical motion tendernes, adnexal tenderness, adnexal mass, uterine enlargement, uterine tenderness - Extremities Exam Extremities exam: Present: normal inspection, full ROM, normal capillary refill - Back Exam Back exam: Present: normal inspection, full ROM. Absent: tenderness, CVA tenderness (R), CVA tenderness (L), muscle spasm, paraspinal tenderness, vertebral tenderness, rash noted - Neurological Exam Neurological exam: Present: alert, oriented X3, CN II-XII intact, normal gait, reflexes normal - Psychiatric Psychiatric exam: Present: normal affect, normal mood - Skin Skin exam: Present: warm, dry, intact, normal color. Absent: rash ED Course Vital Signs 08/10/17 20:08 Temperature 98.8 F Pulse Rate 73 Respiratory 16 Rate Blood Pressure 131/73 O2 Sat by Pulse 95 Oximetry - Reevaluation(s) Reevaluation #1: 08/10/17 22:34 Patient is speaking in full sentences with no signs of distress noted. ED Medical Decision Making - Medical Decision Making This is a 27-year-old female that presents with vaginal itching and discomfort. Patient is stable and was examined by me. UA obtained within normal limits. Negative test. Wet prep obtained. GC pendign. Due to patient having symptoms of yeast, i will treat patient for yeast. Patient stated she is not concerned at all with any STDs. Patient was instructed to return in 3 days to obtained results of G/C. Patient was instructed to Follow-up with a primary care doctor in 3-5 days or if symptoms worsen and continue return to emergency room as soon as possible. At time of discharge, the patient does not seem toxic or ill in appearance. No acute signs of distress noted. Patient agrees to discharge treatment plan of care. No further questions noted by the patient. Critical care attestation.: If time is entered above; I have spent that time in minutes in the direct care of this critically ill patient, excluding procedure time. ED Disposition Clinical Impression: Vaginal discomfort, Vaginal itching Disposition: DC- TO HOME OR SELFCARE Is pt being admited?: No Does the pt Need Aspirin: No Condition: Stable Instructions: Fluconazole (By mouth) Additional Instructions: Follow-up with a primary care doctor in 3-5 days or if symptoms worsen and continue return to emergency room as soon as possible. Return in 3 days to obtain results of gonorrhea and chlamydia Prescriptions: Fluconazole [Diflucan TAB] 150 mg PO ONCE #2 tablet Referrals: JETHRO TOUSSAINT MD [Primary Care Provider] - 3-5 Days PRIMARY CARE, [Referring] - 3-5 Days [facility] [Outside] - 3-5 Days [facility] [Outside] - 3-5 Days Forms: Work/School Release Form(ED)
[2017-08-11 06:00] VITALS: BP 129/68
== END 2017-08-10 23:55 | disposition home or self-care (01) ==
LOC: ED 19:14
DX: N89.8 Other specified noninflammatory disorders of vagina (principal); F17.200 Nicotine dependence, unspecified, uncomplicated
CPT/HCPCS: 81001; 81025; 87210; 87591

== ENCOUNTER 2017-12-07 16:26 | Emergency (ER) | payer MEDICAID ==
[2017-12-07 16:35] VITALS: BP 141/95
[2017-12-07] MEDS ORDERED: ROCEPHIN IM ONE (18:06)
[2017-12-07] MEDS ORDERED: XYLOCAINE 1% MPF 5 mL INFILTRATI ONE (18:06)
[2017-12-07] MEDS ORDERED: ZITHROMAX PO ONE (18:06)
--- NOTE | 2017-12-07 18:12 | Emergency Department Report ---
ED Female HPI - General Chief complaint: Urogenital-Female Stated complaint: POSSIBLE STD Time Seen by Provider: 12/07/17 17:59 Source: patient Mode of arrival: Ambulatory Limitations: No Limitations - History of Present Illness Initial comments: Patient is 27-year-old [place] female who presents with general saw her left labia after unprotected sex 4 days ago patient denies pain fever no vaginal discharge no back pain vaginal pain or nausea and vomiting patient will question prophylactic treatment for STD exposure patient denies number control last menstrual period was one week ago. MD Complaint: possible STD Onset/Timin -: days(s) Location: labia Radiation: non-radiating Severity: mild Severity scale (0 -10): 3 Quality: dull Consistency: intermittent Improves with: none Worsens with: none Are you Now?: No Last Menstrual Period: 11/29/17 EDC: 09/05/18 - Related Data Sexually active: Yes Previous Rx's Medication Instructions Recorded Last Taken Type HYDROcodone/APAP 5-325 [[place] 1 each PO Q6HR PRN #20 tablet 11/04/16 Unknown Rx 5/325] Nitrofurantoin [place]/M-Cryst 100 mg PO Q12HR #14 capsule 01/03/17 Unknown Rx [Macrobid CAP] levETIRAcetam [Keppra TAB] 500 mg PO BID #60 tablet 01/12/17 Unknown Rx Fluconazole [Diflucan TAB] 150 mg PO ONCE #2 tablet 08/10/17 Unknown Rx Nitrofurantoin Monohyd/M-Cryst 100 mg PO BID #20 capsule 12/07/17 Unknown Rx [Macrobid 100 mg Capsule] metroNIDAZOLE [Flagyl] 500 mg PO Q12HR #20 tab 12/07/17 Unknown Rx Allergies Allergy/AdvReac Type Severity Reaction Status Date / Time No Known Allergies Allergy Verified 11/10/16 14:22 ED Review of Systems ROS: Stated complaint: POSSIBLE STD Other details as noted in HPI Constitutional: denies: chills, fever Eyes: denies: eye pain, eye discharge, vision change ENT: denies: ear pain, throat pain Respiratory: denies: cough, shortness of breath, wheezing Cardiovascular: denies: chest pain, palpitations Endocrine: no symptoms reported Gastrointestinal: denies: abdominal pain, nausea, diarrhea Genitourinary: other (left labial vaginal sore ). denies: urgency, dysuria, frequency, hematuria, discharge, abnormal menses (area), dyspareunia Musculoskeletal: denies: back pain, joint swelling, arthralgia Skin: denies: rash, lesions Neurological: denies: headache, weakness, paresthesias Psychiatric: denies: anxiety, depression Hematological/Lymphatic: denies: easy bleeding, easy bruising ED Past Medical Hx - Past Medical History Previous Medical History?: Yes Hx Seizures: Yes (Keppra) - Surgical History Past Surgical History?: Yes Additional Surgical History: x1 - Social History Smoking Status: Never Smoker Substance Use Type: None - Medications Home Medications: Home Medications Medication Instructions Recorded Confirmed Last Taken Type HYDROcodone/APAP 5-325 [[place] 1 each PO Q6HR PRN #20 tablet 11/04/16 11/10/16 Unknown Rx 5/325] Nitrofurantoin [place]/M-Cryst 100 mg PO Q12HR #14 capsule 01/03/17 Unknown Rx [Macrobid CAP] levETIRAcetam [Keppra TAB] 500 mg PO BID #60 tablet 01/12/17 Unknown Rx Fluconazole [Diflucan TAB] 150 mg PO ONCE #2 tablet 08/10/17 Unknown Rx Nitrofurantoin Monohyd/M-Cryst 100 mg PO BID #20 capsule 12/07/17 Unknown Rx [Macrobid 100 mg Capsule] metroNIDAZOLE [Flagyl] 500 mg PO Q12HR #20 tab 12/07/17 Unknown Rx ED Physical Exam - General Limitations: No Limitations General appearance: alert, in no apparent distress - Head Head exam: Present: atraumatic, normocephalic - Eye Eye exam: Present: normal appearance - ENT ENT exam: Present: mucous membranes moist - Neck Neck exam: Present: normal inspection - Respiratory Respiratory exam: Present: normal lung sounds bilaterally. Absent: respiratory distress - Cardiovascular Cardiovascular Exam: Present: regular rate, normal rhythm. Absent: systolic murmur, diastolic murmur, rubs, gallop - GI/Abdominal GI/Abdominal exam: Present: soft, normal bowel sounds - Rectal Rectal exam: Present: deferred (is slightly elevated) - External exam: Present: lesions (left labia ). Absent: erythema, swelling, lacerations, ecchymosis, bleeding Speculum exam: Present: erythema. Absent: vaginal discharge, cervical discharge , vaginal bleeding, tissue, laceration - Extremities Exam Extremities exam: Present: normal inspection, full ROM, normal capillary refill. Absent: tenderness, pedal edema, joint swelling, calf tenderness - Back Exam Back exam: Present: normal inspection. Absent: CVA tenderness (R), CVA tenderness (L), muscle spasm - Neurological Exam Neurological exam: Present: alert, oriented X3, CN II-XII intact, normal gait, reflexes normal - Psychiatric Psychiatric exam: Present: normal affect, normal mood - Skin Skin exam: Present: warm, dry, intact, normal color. Absent: rash ED Course Vital Signs 12/07/17 16:30 Temperature 98.5 F Pulse Rate 79 Respiratory 18 Rate Blood Pressure 141/95 O2 Sat by Pulse 100 Oximetry ED Medical Decision Making - Lab Data Laboratory Tests 12/07/17 18:29 Urine Color Yellow Urine Turbidity Clear Urine pH 5.0 Ur Specific [place] 1.025 Urine Protein <15 mg/dl Urine Glucose (UA) Neg Urine Ketones Neg Urine Blood Neg Urine Nitrite Neg Urine Bilirubin Neg Urine Urobilinogen < 2.0 Ur Leukocyte Esterase Lg Urine WBC (Auto) 16.0 H Urine RBC (Auto) 7.0 U Epithel Cells (Auto) 5.0 Urine Bacteria (Auto) 2+ Urine Mucus Few Urine HCG, Qual Negative - Medical Decision Making Plan patient treated for STD exposure including Rocephin and azithromycin will DC home a prescription for Flagyl by mouth twice a day 7 days patient will follow-up with [facility] in 2-3 days. pt verbalized agreement and understanding of discharge plan. Critical care attestation.: If time is entered above; I have spent that time in minutes in the direct care of this critically ill patient, excluding procedure time. ED Disposition Clinical Impression: STD exposure Disposition: DC-01 TO HOME OR SELFCARE Is pt being admited?: No Does the pt Need Aspirin: No Condition: Good Instructions: Sexually Transmitted Diseases (ED) Prescriptions: metroNIDAZOLE [Flagyl] 500 mg PO Q12HR #20 tab Nitrofurantoin Monohyd/M-Cryst [Macrobid 100 mg Capsule] 100 mg PO BID #20 capsule Referrals: [facility] [Outside] - 3-5 Days Forms: Work/School Release Form(ED) Time of Disposition: 19:04
[2017-12-07 18:48] LABS: Bacteria,Urine 2+ /HPF (Negative); Bilirubin,Urine NEG (Negative); Blood,Urine NEG (Negative); Color,Urine Yellow (Yellow); Mucus,Urine FEW /HPF; Protein,Urine <15 mg/dL mg/dL (Negative); Urobilinogen,Urine < 2.0 mg/dL (<2.0)
[2017-12-07 18:54] LABS: HCG Qualitative,Urine Negative (Negative)
== END 2017-12-07 19:11 | disposition home or self-care (01) ==
LOC: ED 16:26
DX: Z20.2 Contact with and (suspected) exposure to infections with a predominantly sexual mode of transmission (principal)
CPT/HCPCS: 81001; 81025; 96372; 99283; J0696

== ENCOUNTER 2018-11-19 09:01 | Emergency (ER) | payer MEDICAID ==
[2018-11-19 09:19] VITALS: BP 146/64
[2018-11-19 10:20] LABS: Bilirubin,Urine NEG (Negative); Blood,Urine NEG (Negative); Color,Urine Straw (Yellow); Mucus,Urine FEW /HPF; Protein,Urine <15 mg/dL mg/dL (Negative); Urobilinogen,Urine < 2.0 mg/dL (<2.0)
[2018-11-19 10:24] LABS: HCG Qualitative,Urine Negative (Negative)
--- NOTE | 2018-11-19 11:03 | Emergency Department Report ---
ED Female HPI - General Chief complaint: Urogenital-Female Stated complaint: VAGINAL DISCOMFORT/THROAT PAIN Time Seen by Provider: 11/19/18 09:55 Source: patient Mode of arrival: Ambulatory Limitations: No Limitations - History of Present Illness Initial comments: Dong is a 28-year-old female who presents to ED today complaining of having vaginal blood when she wipes. She denies dysuria, vaginal discharge, vaginal itching. Patient states that she just sees blood when she wipes after urinating sometimes. She denies fever, chills, nausea vomiting abdominal pain. - Related Data Previous Rx's Medication Instructions Recorded Last Taken Type HYDROcodone/APAP 5-325 [[place] 1 each PO Q6HR PRN #20 tablet 11/04/16 Unknown Rx 5/325] Nitrofurantoin [place]/M-Cryst 100 mg PO Q12HR #14 capsule 01/03/17 Unknown Rx [Macrobid CAP] levETIRAcetam [Keppra TAB] 500 mg PO BID #60 tablet 01/12/17 Unknown Rx Nitrofurantoin Monohyd/M-Cryst 100 mg PO BID #20 capsule 12/07/17 Unknown Rx [Macrobid 100 mg Capsule] ALBUTEROL Inhaler(NF) [VENTOLIN 1 puff IH Q4HRT PRN #1 inha 09/22/18 Unknown Rx Inhaler(NF)] Azithromycin [Zithromax Z-KEEGAN] 250 mg PO DAILY #6 tablet 09/22/18 Unknown Rx Benzonatate [Tessalon Perles] 100 mg PO Q8HR #10 capsule 09/22/18 Unknown Rx predniSONE [Deltasone] 20 mg PO QDAY #5 tab 09/22/18 Unknown Rx Fluconazole [Diflucan TAB] 150 mg PO ONCE #2 tablet 11/19/18 Unknown Rx metroNIDAZOLE [Flagyl TAB] 500 mg PO Q12HR #20 tab 11/19/18 Unknown Rx Allergies Allergy/AdvReac Type Severity Reaction Status Date / Time No Known Allergies Allergy Verified 09/22/18 15:55 ED Review of Systems ROS: Stated complaint: VAGINAL DISCOMFORT/THROAT PAIN Other details as noted in HPI Comment: All other systems reviewed and negative ED Past Medical Hx - Past Medical History Previous Medical History?: Yes Hx Seizures: Yes (Keppra) - Surgical History Past Surgical History?: Yes Additional Surgical History: C section - Social History Smoking Status: Never Smoker Substance Use Type: Alcohol - Medications Home Medications: Home Medications Medication Instructions Recorded Confirmed Last Taken Type HYDROcodone/APAP 5-325 [[place] 1 each PO Q6HR PRN #20 tablet 11/04/16 11/10/16 Unknown Rx 5/325] Nitrofurantoin [place]/M-Cryst 100 mg PO Q12HR #14 capsule 01/03/17 Unknown Rx [Macrobid CAP] levETIRAcetam [Keppra TAB] 500 mg PO BID #60 tablet 01/12/17 Unknown Rx Nitrofurantoin Monohyd/M-Cryst 100 mg PO BID #20 capsule 12/07/17 Unknown Rx [Macrobid 100 mg Capsule] ALBUTEROL Inhaler(NF) [VENTOLIN 1 puff IH Q4HRT PRN #1 inha 09/22/18 Unknown Rx Inhaler(NF)] Azithromycin [Zithromax Z-KEEGAN] 250 mg PO DAILY #6 tablet 09/22/18 Unknown Rx Benzonatate [Tessalon Perles] 100 mg PO Q8HR #10 capsule 09/22/18 Unknown Rx predniSONE [Deltasone] 20 mg PO QDAY #5 tab 09/22/18 Unknown Rx Fluconazole [Diflucan TAB] 150 mg PO ONCE #2 tablet 11/19/18 Unknown Rx metroNIDAZOLE [Flagyl TAB] 500 mg PO Q12HR #20 tab 11/19/18 Unknown Rx ED Physical Exam - General Limitations: No Limitations General appearance: alert, in no apparent distress - Head Head exam: Present: atraumatic, normocephalic - Eye Eye exam: Present: normal appearance - ENT ENT exam: Present: mucous membranes moist - Neck Neck exam: Present: normal inspection - Respiratory Respiratory exam: Present: normal lung sounds bilaterally. Absent: respiratory distress - Cardiovascular Cardiovascular Exam: Present: regular rate, normal rhythm. Absent: systolic murmur, diastolic murmur, rubs, gallop - GI/Abdominal GI/Abdominal exam: Present: soft, normal bowel sounds. Absent: distended, tenderness, guarding, rebound - Extremities Exam Extremities exam: Present: normal inspection - Back Exam Back exam: Present: normal inspection - Neurological Exam Neurological exam: Present: alert, oriented X3 - Psychiatric Psychiatric exam: Present: normal affect, normal mood - Skin Skin exam: Present: warm, dry, intact, normal color. Absent: rash ED Course Vital Signs 11/19/18 09:14 Temperature 98.4 F Pulse Rate 95 H Respiratory 16 Rate Blood Pressure 146/64 O2 Sat by Pulse 100 Oximetry ED Medical Decision Making - Medical Decision Making 28-year-old female presents with vaginitis. Urinalysis urine test both negative Discussed his findings with the patient. Patient sent home with Flagyl and Diflucan prophylaxis treatment based on symptoms. Discussed the patient will follow up with [facility] [employer]. Past sensory normal she is in no acute distress. Critical care attestation.: If time is entered above; I have spent that time in minutes in the direct care of this critically ill patient, excluding procedure time. ED Disposition Clinical Impression: Vaginitis Disposition: - TO HOME OR SELFCARE Is pt being admited?: No Does the pt Need Aspirin: No Condition: Stable Instructions: Vaginitis (ED) Additional Instructions: Make sure to follow up with the primary care physician as discussed. Take all your medications as you've been prescribed. If you have any worsening symptoms or develop new symptoms please return to ED immediately. Prescriptions: Fluconazole [Diflucan TAB] 150 mg PO ONCE #2 tablet metroNIDAZOLE [Flagyl TAB] 500 mg PO Q12HR #20 tab Referrals: [facility] [Other] - 3-5 Days Forms: Work/School Release Form(ED) Time of Disposition: 11:27
== END 2018-11-19 12:46 | disposition home or self-care (01) ==
LOC: ED 09:01
DX: N76.0 Acute vaginitis (principal); B96.89 Other specified bacterial agents as the cause of diseases classified elsewhere
CPT/HCPCS: 81001; 81025; 99283

== ENCOUNTER 2021-07-09 03:34 | Emergency (ER) | payer MEDICAID ==
[2021-07-09 04:38] LABS: Basophils % (Auto) 0.2 % (0.0-1.8); Eosinophils # (Auto) 0.1 K/mm3 (0.0-0.4); Eosinophils % (Auto) 1.2 % (0.0-4.3); Hematocrit 34.4 % (30.3-42.9); Hemoglobin 11.1 gm/dl (10.1-14.3); Lymphocytes # (Auto) 2.5 K/mm3 (1.2-5.4); Lymphocytes % (Auto) 37.5 % (13.4-35.0); Mean Corpuscular HGB Conc 32 % (30-34); Mean Corpuscular Volume 80 fl (79-97); Monocytes # (Auto) 0.7 K/mm3 (0.0-0.8); Monocytes % (Auto) 11.2 % (0.0-7.3); Platelet Count 340 K/mm3 (140-440); Red Blood Count 4.32 M/mm3 (3.65-5.03); Red Cell Distribution Width 13.6 % (13.2-15.2)
[2021-07-09 04:53] LABS: Alanine Aminotransferase 17 units/L (7-56); Albumin 3.8 g/dL (3.9-5); Blood Urea Nitrogen 8 mg/dL (7-17); Calcium 8.8 mg/dL (8.4-10.2); Hemolysis Index 0
[2021-07-09 04:58] LABS: BUN/Creatinine Ratio 27
--- NOTE | 2021-07-09 05:53 | Emergency Department Report ---
HPI - General Chief Complaint: Vaginal Bleeding Time Seen by Provider: 07/09/21 04:11 - HPI HPI: 31-year-old -[place] female presents to the emergency department with a complaint of lower abdominal and pelvic pain, as well as some vaginal bleeding, while . The patient is unsure of her last menstrual cycle as she had some mild vaginal bleeding around Em[place]. Since that time the patient has had 2 positive home tests. Late last night/early this morning the patient woke up with the sharp pelvic pains and has since noticed some mild to moderate vaginal bleeding. She denies any fever, dysuria, vaginal discharge, chest pain, shortness of breath. She has not taken anything for symptoms prior to presentation. With this the patient is G2, P1. Patient follows with [facility]. ED Past Medical Hx - Past Medical History Hx Seizures: Yes (Kebogdan) - Surgical History Additional Surgical History: C section - Social History Smoking Status: Never Smoker Substance Use Type: Alcohol - Medications Home Medications: Home Medications Medication Instructions Recorded Confirmed Last Taken Type No Known Home Medications [No 07/09/21 07/09/21 Unknown History Reported Home Medications] ED Review of Systems ROS: Stated complaint: 6wk preg.bleeding,pain Other details as noted in HPI Comment: All other systems reviewed and negative Constitutional: denies: chills, fever Eyes: denies: eye pain, vision change ENT: denies: ear pain, throat pain Respiratory: denies: cough, shortness of breath Cardiovascular: denies: chest pain, palpitations Gastrointestinal: abdominal pain. denies: nausea, vomiting Genitourinary: other (Pelvic pain, vaginal bleeding). denies: dysuria, discharge Musculoskeletal: denies: joint swelling, arthralgia Skin: denies: rash, lesions Neurological: denies: headache, weakness Physical Exam - Physical Exam Vital Signs: Vital Signs 07/09/21 03:38 Temperature 98.7 F Pulse Rate 99 H Respiratory 22 Rate Blood Pressure 152/78 O2 Sat by Pulse 99 Oximetry Physical Exam: GENERAL: The patient is well-developed well-nourished. HENT: Normocephalic. Atraumatic. Patient has moist mucous membranes. EYES: Extraocular motions are intact. NECK: Supple. Trachea is midline. CHEST/LUNGS: Clear to auscultation. There is no respiratory distress noted. HEART/CARDIOVASCULAR: Regular. There is no tachycardia. There is no murmur. ABDOMEN: Abdomen is soft. Right lower quadrant abdominal tenderness to palpation. No guarding. Patient has normal bowel sounds. There is no abdominal distention. SKIN: Skin is warm and dry. NEURO: The patient is awake, alert, and oriented. The patient is cooperative. The patient has no focal neurologic deficits. Normal speech. MUSCULOSKELETAL: There is no tenderness or deformity. There is no limitation range of motion. ED Course Vital Signs 07/09/21 03:38 Temperature 98.7 F Pulse Rate 99 H Respiratory 22 Rate Blood Pressure 152/78 O2 Sat by Pulse 99 Oximetry - Consultations Consultation #1: 07/09/21 06:09 I spoke to the MECHANICAL TECH on-call for [facility], Dr. Gonzalez. We discussed the patient's presentation, lab results, and most significantly at the ultrasound findings of a left adnexal live ectopic . As there is only a very mild or minimal amount of free fluid seen in the pelvis, with low concern for a ruptured ectopic, the patient can be treated with methotrexate and discharged home for outpatient follow-up with [facility]. ED Medical Decision Making - Lab Data Result diagrams: 07/09/21 04:18 07/09/21 04:18 Lab Results 07/09/21 07/09/21 07/09/21 Range/Units 04:18 04:18 04:18 WBC 6.6 (4.5-11.0) K/mm3 RBC 4.32 (3.65-5.03) M/mm3 Hgb 11.1 (10.1-14.3) gm/dl Hct 34.4 (30.3-42.9) % MCV 80 (79-97) fl MCH 26 L (28-32) pg MCHC 32 (30-34) % RDW 13.6 (13.2-15.2) % Plt Count 340 (140-440) K/mm3 Lymph % (Auto) 37.5 H (13.4-35.0) % [place] % (Auto) 11.2 H (0.0-7.3) % Eos % (Auto) 1.2 (0.0-4.3) % Baso % (Auto) 0.2 (0.0-1.8) % Lymph # (Auto) 2.5 (1.2-5.4) K/mm3 [place] # (Auto) 0.7 (0.0-0.8) K/mm3 Eos # (Auto) 0.1 (0.0-0.4) K/mm3 Baso # (Auto) 0.0 (0.0-0.1) K/mm3 Seg Neutrophils % 49.9 (40.0-70.0) % Seg Neutrophils # 3.3 (1.8-7.7) K/mm3 Sodium 135 L (137-145) mmol/L Potassium 3.9 (3.6-5.0) mmol/L Chloride 103.0 (98-107) mmol/L Carbon Dioxide 22 (22-30) mmol/L Anion Gap 14 mmol/L BUN 8 (7-17) mg/dL Creatinine 0.3 L (0.6-1.2) mg/dL Estimated GFR > 60 ml/min BUN/Creatinine Ratio 27 % Glucose 109 H (65-100) mg/dL Calcium 8.8 (8.4-10.2) mg/dL Total Bilirubin 0.50 (0.1-1.2) mg/dL AST 12 (5-40) units/L ALT 17 (7-56) units/L Alkaline Phosphatase 110 (35-129) units/L Total Protein 7.5 (6.3-8.2) g/dL Albumin 3.8 L (3.9-5) g/dL Albumin/Globulin Ratio 1.0 % HCG, Quant (0-4) mIU/mL Blood Type O POSITIVE Ord Rhogam Gestat Weeks Rh pos WEEKS 07/09/21 Range/Units 04:18 WBC (4.5-11.0) K/mm3 RBC (3.65-5.03) M/mm3 Hgb (10.1-14.3) gm/dl Hct (30.3-42.9) % MCV (79-97) fl MCH (28-32) pg MCHC (30-34) % RDW (13.2-15.2) % Plt Count (140-440) K/mm3 Lymph % (Auto) (13.4-35.0) % [place] % (Auto) (0.0-7.3) % Eos % (Auto) (0.0-4.3) % Baso % (Auto) (0.0-1.8) % Lymph # (Auto) (1.2-5.4) K/mm3 [place] # (Auto) (0.0-0.8) K/mm3 Eos # (Auto) (0.0-0.4) K/mm3 Baso # (Auto) (0.0-0.1) K/mm3 Seg Neutrophils % (40.0-70.0) % Seg Neutrophils # (1.8-7.7) K/mm3 Sodium (137-145) mmol/L Potassium (3.6-5.0) mmol/L Chloride (98-107) mmol/L Carbon Dioxide (22-30) mmol/L Anion Gap mmol/L BUN (7-17) mg/dL Creatinine (0.6-1.2) mg/dL Estimated GFR ml/min BUN/Creatinine Ratio % Glucose (65-100) mg/dL Calcium (8.4-10.2) mg/dL Total Bilirubin (0.1-1.2) mg/dL AST (5-40) units/L ALT (7-56) units/L Alkaline Phosphatase (35-129) units/L Total Protein (6.3-8.2) g/dL Albumin (3.9-5) g/dL Albumin/Globulin Ratio % HCG, Quant 5463 H (0-4) mIU/mL Blood Type Ord Rhogam Gestat Weeks WEEKS - Radiology Data Radiology results: report reviewed ULTRASOUND OBSTETRIC , 1ST TRIMESTER INDICATION / CLINICAL INFORMATION: , bleeding. Clinical Gestational Age (GA) in weeks, days: Approximately 6 weeks TECHNIQUE: Transabdominal. Transvaginal COMPARISON: None available. FINDINGS: UTERUS: The uterus is normal in appearance measuring 8.8 x 4.6 x 6.9 cm. Endometrial complex is mildly heterogeneous measuring 10 mm in thickness. No focal uterine mass. No evidence of a gestational sac within the uterus. ADNEXA: There is a mass adjacent to the left ovary measuring approximately 1.4 x 1.4 cm with central round cystic component. Soft tissue focus thought to be a pole is seen within the cystic component. The appearance is certainly worrisome for left ectopic . wood technologist documented what appeared to be cardiac activity. Estimated gestational age based on what is presumed to be a pole is 6 weeks 1 day. Right ovary is unremarkable. FREE FLUID: Small amount of free fluid noted in the left adnexa. ADDITIONAL FINDINGS: None. IMPRESSION: 1. Left adnexal mass with small amount of associated free fluid. The adnexal mass contains what appears to be a pole with cardiac activity. Estimated gestational age is 6 weeks 1 day. Overall appearance is highly suggestive for ectopic . 2. No gestational sac identified within the uterus. - Medical Decision Making This patient presented to the emergency department with complaint of abdominal and pelvic pain, as well as vaginal bleeding, while . Patient has a beta-hCG of about 5400. Her blood type is O+ and therefore she does not require the ED RhoGAM shot. The rest of the patient's labs are unremarkable including CBC and metabolic panel. ultrasound shows a left adnexal live ectopic . There is only a minimal amount of free fluid and this does not appear consistent with a ruptured ectopic . I had multiple discussions with the MECHANICAL TECH on-call for [facility], the patient's MECHANICAL TECH practice. The patient will receive methotrexate and then can be discharged home to follow-up with MECHANICAL TECH. The lab results, ultrasound finding of a live ectopic , the discussion with MECHANICAL TECH, the plan to treat with methotrexate and then discharged home for outpatient follow-up, were all discussed with the patient. All questions have been answered and she understands and agrees with the plan. Critical Care Time: No Critical care attestation.: If time is entered above; I have spent that time in minutes in the direct care of this critically ill patient, excluding procedure time. ED Disposition Clinical Impression: Ectopic , tubal Disposition: 01 HOME / SELF CARE / HOMELESS Is pt being admited?: No Condition: Stable Instructions: Methotrexate Treatment for an Ectopic , Care After, Ectopic Additional Instructions: Please follow-up with your [facility] as soon as possible. Return to the emergency department with any worsening of your symptoms, including any increased pelvic pain, increased vaginal bleeding, new or concerning symptoms not addressed during this emergency department visit, or with any acute distress. Referrals: [facility] [Provider Group] - [place] Forms: Work/School Release Form(ED) Time of Disposition: 06:38
--- NOTE | 2021-07-09 06:14 | Ultrasound Report ---
ULTRASOUND OBSTETRIC , 1ST TRIMESTER INDICATION / CLINICAL INFORMATION: , bleeding. Clinical Gestational Age (GA) in weeks, days: Approximately 6 weeks TECHNIQUE: Transabdominal. Transvaginal COMPARISON: None available. FINDINGS: UTERUS: The uterus is normal in appearance measuring 8.8 x 4.6 x 6.9 cm. Endometrial complex is mildl y heterogeneous measuring 10 mm in thickness. No focal uterine mass. No evidence of a gestational sac within the uterus. ADNEXA: There is a mass adjacent to the left ovary measuring approximately 1.4 x 1.4 cm with central round cystic component. Soft tissue focus thought to be a pole is seen within the cystic compon ent. The appearance is certainly worrisome for left ectopic . optometric technologist docume nted what appeared to be cardiac activity. Estimated gestational age based on what is presumed to be a pole is 6 weeks 1 day. Right ovary is unremarkable. FREE FLUID: Small amount of free fluid noted in the left adnexa. ADDITIONAL FINDINGS: None. IMPRESSION: 1. Left adnexal mass with small amount of associated free fluid. The adnexal mass contains what appea rs to be a pole with cardiac activity. Estimated gestational age is 6 weeks 1 day. Overal l appearance is highly suggestive for ectopic . 2. No gestational sac identified within the uterus. CRITICAL RESULT: Time of Discovery: 0500 hours LITHOGRAPHIC PROOFER Time of Communication: 0504 hours LITHOGRAPHIC PROOFER Licensed Practitioner Receiving Report: Dr. Srinivasa Perez Read Back Performed: Yes. Signer Name: Esther Carpenter MD Signed: 07/09/2021 6:09 AM Workstation Name: [id number]
--- NOTE | 2021-07-09 06:14 | Ultrasound Report ---
ULTRASOUND OBSTETRIC , 1ST TRIMESTER INDICATION / CLINICAL INFORMATION: , bleeding. Clinical Gestational Age (GA) in weeks, days: Approximately 6 weeks TECHNIQUE: Transabdominal. Transvaginal COMPARISON: None available. FINDINGS: UTERUS: The uterus is normal in appearance measuring 8.8 x 4.6 x 6.9 cm. Endometrial complex is mildl y heterogeneous measuring 10 mm in thickness. No focal uterine mass. No evidence of a gestational sac within the uterus. ADNEXA: There is a mass adjacent to the left ovary measuring approximately 1.4 x 1.4 cm with central round cystic component. Soft tissue focus thought to be a pole is seen within the cystic compon ent. The appearance is certainly worrisome for left ectopic . blood bank laboratory technologist docume nted what appeared to be cardiac activity. Estimated gestational age based on what is presumed to be a pole is 6 weeks 1 day. Right ovary is unremarkable. FREE FLUID: Small amount of free fluid noted in the left adnexa. ADDITIONAL FINDINGS: None. IMPRESSION: 1. Left adnexal mass with small amount of associated free fluid. The adnexal mass contains what appea rs to be a pole with cardiac activity. Estimated gestational age is 6 weeks 1 day. Overal l appearance is highly suggestive for ectopic . 2. No gestational sac identified within the uterus. CRITICAL RESULT: Time of Discovery: 0500 hours PORCELAIN FINISH SPRAYER Time of Communication: 0504 hours PORCELAIN FINISH SPRAYER Licensed Practitioner Receiving Report: Dr. Srinivasa Perez Read Back Performed: Yes. Signer Name: Esther Carpenter MD Signed: 07/09/2021 6:09 AM Workstation Name: [id number]
--- NOTE | 2021-07-09 09:56 | Event Note ---
I was informed by nurse that patient is stable for discharge. She received methotrexate education. She verbalized understanding of return precautions.
[2021-07-09 10:01] VITALS: BP 149/75
== END 2021-07-09 10:17 | disposition home or self-care (01) ==
LOC: ED 03:34
DX: O00.109 Unspecified tubal pregnancy without intrauterine pregnancy (principal); O99.311 Alcohol use complicating pregnancy, first trimester; F10.20 Alcohol dependence, uncomplicated; Z3A.01 Less than 8 weeks gestation of pregnancy
CPT/HCPCS: 36415; 76801; 76817; 80053; 84702; 85025; 86900; 86901; 96372; 99284; J9260

== ENCOUNTER 2021-07-18 05:36 | Inpatient (IN) | payer MEDICAID, OTHER ==
--- NOTE | 2021-07-18 06:33 | Emergency Department Report ---
ED Abdominal Pain HPI - General Chief Complaint: Abdominal Pain Stated Complaint: ABDOMINAL PAIN Time Seen by Provider: 07/18/21 06:29 Source: EMS Mode of arrival: Wheelchair Limitations: No Limitations - History of Present Illness Initial Comments: Patient presents with abdominal pain. She been seen here recently and diagnosed with an ectopic. That was around July 09. She was given methotrexate. She has now started to bleed. She followed up with [facility] on the . She had not had bleeding or pain at that point. She states that they really "did not do anything." She came here for evaluation and treatment today because she is now having pain and bleeding and she did not know what to do. The pain is more intense and severe than when it was previously. She is having pain in the right lower abdomen, left lower abdomen, and upper abdomen. She has no nausea or vomiting. There is no travel or trauma. She is never had symptoms like this before. Patient is a G2, P1. She was approximately 6 weeks by dates. She does not know her blood type. Based on old records. Patient had a quant of 5463. She was Rh+. She had a left ectopic that was about 1.4 cm x 1.4 cm. Ultrasound as below. ULTRASOUND OBSTETRIC , 1ST TRIMESTER INDICATION / CLINICAL INFORMATION: , bleeding. Clinical Gestational Age (GA) in weeks, days: Approximately 6 weeks TECHNIQUE: Transabdominal. Transvaginal COMPARISON: None available. FINDINGS: UTERUS: The uterus is normal in appearance measuring 8.8 x 4.6 x 6.9 cm. Endometrial complex is mildly heterogeneous measuring 10 mm in thickness. No focal uterine mass. No evidence of a gestational sac within the uterus. ADNEXA: There is a mass adjacent to the left ovary measuring approximately 1.4 x 1.4 cm with central round cystic component. Soft tissue focus thought to be a pole is seen within the cystic component. The appearance is certainly worrisome for left ectopic . interventional radiology technologist documented what appeared to be cardiac activity. Estimated gestational age based on what is presumed to be a pole is 6 weeks 1 day. Right ovary is unremarkable. FREE FLUID: Small amount of free fluid noted in the left adnexa. ADDITIONAL FINDINGS: None. IMPRESSION: 1. Left adnexal mass with small amount of associated free fluid. The adnexal mass contains what appears to be a pole with cardiac activity. Estimated gestational age is 6 weeks 1 day. Overall appearance is highly suggestive for ectopic . 2. No gestational sac identified within the uterus. - Related Data Home Medications Medication Instructions Recorded Confirmed Last Taken No Known Home Medications [No 07/09/21 07/09/21 Unknown Reported Home Medications] Allergies Allergy/AdvReac Type Severity Reaction Status Date / Time No Known Allergies Allergy Verified 07/18/21 05:39 ED Review of Systems ROS: Stated complaint: ABDOMINAL PAIN Other details as noted in HPI Comment: All other systems reviewed and negative Constitutional: denies: fever Eyes: denies: eye pain ENT: denies: throat pain Respiratory: denies: cough Cardiovascular: denies: chest pain Endocrine: denies: unexplained weight loss Gastrointestinal: as per HPI Genitourinary: denies: dysuria Musculoskeletal: denies: back pain Skin: denies: rash Neurological: denies: headache Hematological/Lymphatic: denies: easy bruising ED Past Medical Hx - Past Medical History Hx Seizures: Yes (Ghazal) Additional medical history: G2, P1 - Surgical History Additional Surgical History: C section - Family History Family history: no significant - Social History Smoking Status: Never Smoker Substance Use Type: Alcohol - Medications Home Medications: Home Medications Medication Instructions Recorded Confirmed Last Taken Type No Known Home Medications [No 07/09/21 07/09/21 Unknown History Reported Home Medications] ED Physical Exam - General Limitations: No Limitations, Other (Pulse ox noted and normal) General appearance: alert, other (In moderate pain) - Head Head exam: Present: atraumatic, normocephalic - Eye Eye exam: Present: normal appearance, EOMI. Absent: scleral icterus - ENT ENT exam: Present: normal orophraynx, normal external ear exam - Neck Neck exam: Present: normal inspection. Absent: meningismus - Respiratory Respiratory exam: Present: normal lung sounds bilaterally. Absent: respiratory distress - Cardiovascular Cardiovascular Exam: Present: normal rhythm, tachycardia - GI/Abdominal GI/Abdominal exam: Present: soft, tenderness (Diffuse lower abdominal tenderness with voluntary guarding). Absent: distended - Extremities Exam Extremities exam: Present: normal capillary refill - Back Exam Back exam: Absent: CVA tenderness (R), CVA tenderness (L) - Neurological Exam Neurological exam: Present: alert, oriented X3, normal gait. Absent: motor sensory deficit - Psychiatric Psychiatric exam: Present: normal affect, normal mood - Skin Skin exam: Present: warm, dry ED Course Vital Signs 07/18/21 05:39 Temperature 98.9 F Pulse Rate 100 H Respiratory 18 Rate Blood Pressure 145/111 [Left] O2 Sat by Pulse 99 Oximetry - Reevaluation(s) Reevaluation #1: 07/18/21 06:33 IV and labs ordered. Old records noted. Reevaluation #2: 07/18/21 08:32 Ultrasound was discussed with radiologist. [facility] has been paged. Patient has been moved into a room and kept NPO. Type and screen has been added on. Repeat vitals have been requested. Radiologist does believe that this is a right sided ectopic and that the left sided pathology seen on prior ultrasound was a corpus luteum cyst. He states that that was in the ovary and this does not appear to be. He comments that a true ovarian ectopic is rare compared to a tubal ectopic. 07/18/21 08:33 Reevaluation #3: 07/18/21 08:43 Case was discussed with Dr. Villareal for [facility]. She is planning on operative evaluation. ED Medical Decision Making - Lab Data Result diagrams: 07/18/21 07:58 - Radiology Data Radiology results: report reviewed - Medical Decision Making Patient presented secondary to abdominal pain and was found to have what appears to be a ruptured ectopic. Per radiology report and conversation, this appears to be right-sided. Patient has no drop in H&H. She is not hemodynamically unstable. She is not hypotensive. Type and screen has been ordered. Patient will be taken urgently to the operating room by Dr. Villareal. Critical Care Time: No Critical care attestation.: If time is entered above; I have spent that time in minutes in the direct care of this critically ill patient, excluding procedure time. ED Disposition Clinical Impression: Ectopic of left ovary Disposition: ADMITTED INPATIENT Is pt being admited?: Yes Condition: Stable Instructions: Abdominal Pain (ED) Referrals: PRIMARY CARE, [Primary Care Provider] - 3-5 Days
[2021-07-18] MEDS ORDERED: SODIUM CHLORIDE 0.9% 1000 ML 1,000 ML IV ONE (06:34)
[2021-07-18] MEDS ORDERED: fentaNYL 100 MCG/2 ML INJ IV ONE (06:34)
[2021-07-18 08:20] LABS: Hematocrit 32.1 % (30.3-42.9); Hemoglobin 10.4 gm/dl (10.1-14.3); Mean Corpuscular HGB Conc 32 % (30-34); Mean Corpuscular Volume 80 fl (79-97); Platelet Count 375 K/mm3 (140-440); Red Blood Count 4.02 M/mm3 (3.65-5.03); Red Cell Distribution Width 13.2 % (13.2-15.2)
--- NOTE | 2021-07-18 08:22 | Ultrasound Report ---
ULTRASOUND OBSTETRIC REASON FOR EXAM: ectopic TECHNIQUE: Transabdominal and transvaginal ultrasound was performed to evaluate a first trimester pre gnancy. COMPARISON: 07/09/2021 FINDINGS: No intrauterine is identified. There is a well-defined gestational sac with yolk sac and fe shruthi pole in the right adnexa. [place]-rump length of the pole measures 7 mm, corresponding to a g estational age of 6 weeks and 4 days. No heart rate is detected. There is moderate volume free fluid in the right adnexa. A normal right ovary is identified. Thick-walled cystic structure within t he left ovary previously seen on prior ultrasound from 07/09/2021 appears to involve the left ovary and likely represents a corpus luteum cyst. IMPRESSION: Findings consistent with an ectopic in the RIGHT adnexa. Moderate volume heterogeneous free fluid is concerning for rupture.. Findings were discussed with Dr. Tucker by phone on 07/18/21 at 7:18 am. Signer Name: Rolando Barnes MD Signed: 07/18/2021 8:18 AM Workstation Name: [id number]
--- NOTE | 2021-07-18 08:22 | Ultrasound Report ---
ULTRASOUND OBSTETRIC REASON FOR EXAM: ectopic TECHNIQUE: Transabdominal and transvaginal ultrasound was performed to evaluate a first trimester pre gnancy. COMPARISON: 07/09/2021 FINDINGS: No intrauterine is identified. There is a well-defined gestational sac with yolk sac and fe shruthi pole in the right adnexa. [place]-rump length of the pole measures 7 mm, corresponding to a g estational age of 6 weeks and 4 days. No heart rate is detected. There is moderate volume free fluid in the right adnexa. A normal right ovary is identified. Thick-walled cystic structure within t he left ovary previously seen on prior ultrasound from 07/09/2021 appears to involve the left ovary and likely represents a corpus luteum cyst. IMPRESSION: Findings consistent with an ectopic in the RIGHT adnexa. Moderate volume heterogeneous free fluid is concerning for rupture.. Findings were discussed with Dr. Tucker by phone on 07/18/21 at 7:18 am. Signer Name: Rolando Barnes MD Signed: 07/18/2021 8:18 AM Workstation Name: [id number]
[2021-07-18 08:43] LABS: Alanine Aminotransferase 13 units/L (7-56); Albumin 3.7 g/dL (3.9-5); Blood Urea Nitrogen 6 mg/dL (7-17); Hemolysis Index 3
[2021-07-18 08:44] LABS: BUN/Creatinine Ratio 30
--- NOTE | 2021-07-18 09:51 | History and Physical Report ---
History of Present Illness Date of examination: 07/18/21 Chief complaint: abdominal pain and vag bleed History of present illness: at 7.4wks by LMP 05/26/21 and today with u/s showing right adnexal ectopic preg from ER u/s. Pt c/o bilateral upper shoulder pain as well as lower abdominal pain. Denies nausea and vomiting. Denies fever or chills. Past History Past Medical History: no pertinent history Past Surgical History: section (x1) RADIOGRAPHER TECHNOLOGIST History: chlamydia (in the remote past), trichomonas (recently treated in 2020 ) Social history: no significant social history - Obstetrical History Expected Date of Delivery: 03/02/22 Actual Gestation: 7 Week(s) 5 Day(s) : 1 Number of Living Children: 1 Medications and Allergies Allergies Allergy/AdvReac Type Severity Reaction Status Date / Time No Known Allergies Allergy Verified 07/18/21 09:47 Home Medications Medication Instructions Recorded Confirmed Last Taken Type Ibuprofen [Motrin] 800 mg PO Q8HR PRN 21 Days #40 07/18/21 Unknown Rx tablet oxyCODONE /ACETAMINOPHEN [Percocet 1 tab PO Q4HR PRN 21 Days #30 tab 07/18/21 Unknown Rx 5/325] Review of Systems All systems: negative (abdominal pain and vag bleeding) - Vital Signs Vital signs: Vital Signs Temp Pulse Resp BP Pulse Ox 98.9 F 100 H 18 145/111 99 07/18/21 05:39 07/18/21 05:39 07/18/21 05:39 07/18/21 05:39 07/18/21 05:39 Temp Pulse Resp BP Pulse Ox 98.9 F 100 H 35 H 151/76 100 07/18/21 05:39 07/18/21 09:31 07/18/21 09:31 07/18/21 09:31 07/18/21 09:31 - Physical Exam Breasts: Positive: deferred Cardiovascular: Other (tacchycardia) Lungs: Positive: Normal air movement Abdomen: Positive: soft Uterus: Positive: normal size Extremities: Positive: normal Results Result Diagrams: 07/19/21 06:40 07/19/21 06:40 Abnormal lab results 07/18/21 07/18/21 07/18/21 Range/Units 07:58 07:58 07:58 MCH 26 L (28-32) pg Sodium 134 L (137-145) mmol/L Carbon Dioxide 19 L (22-30) mmol/L BUN 6 L (7-17) mg/dL Creatinine 0.2 L (0.6-1.2) mg/dL Glucose 105 H (65-100) mg/dL Albumin 3.7 L (3.9-5) g/dL HCG, Quant 5246 H (0-4) mIU/mL All other labs normal. Assessment and Plan Ruptured ectopic with fluid in pelvis, failed MTX 1. Consents obtained for exploratory lap with excision of affected fallopian tube 2. [facility] following surgery.
[2021-07-18] MEDS ORDERED: MORPHINE 2 MG/1 ML INJ IV ONE (09:52)
--- NOTE | 2021-07-18 10:37 | Anesthesia Consultation ---
Anesthesia Consult and Med Hx Date of service: 07/18/21 - Airway Anesthetic Teeth Evaluation: Good ROM Head & Neck: Adequate Mental/Hyoid Distance: Adequate Mallampati Class: Class II Intubation Access Assessment: Good - Pulmonary Exam CTA: Yes - Cardiac Exam Cardiac Exam: RRR - Pre-Operative Health Status ASA Pre-Surgery Classification: ASA2 Proposed Anesthetic Plan: General - Pulmonary Hx Smoking: No - Central Nervous System Hx Seizures: Yes (Ghazal)
--- NOTE | 2021-07-18 10:38 | Anesthesia Day of Surgery ---
Anesthesia Day of Surgery - Day of Surgery Patient Examined: Yes Patient H&P Reviewed: Yes Patient is NPO: Yes Beta Blockers: No
[2021-07-18] MEDS ORDERED: fentaNYL 100 MCG/2 ML INJ ONE (10:49)
[2021-07-18] MEDS ORDERED: MIDAZOLAM 2 MG/2 ML INJ ONE (10:50)
[2021-07-18] MEDS ORDERED: ROCURONIUM 50 MG/5 ML INJ IV ONE (10:53)
[2021-07-18] MEDS ORDERED: propofoL 200 MG/20 ML VIAL IV ONE (10:53)
[2021-07-18] MEDS ORDERED: dexAMETHasone 20 MG/5 ML VIAL ONE (11:05)
[2021-07-18] MEDS ORDERED: KETOROLAC 30 MG/1 ML INJ ONE (11:05)
[2021-07-18] MEDS ORDERED: ONDANSETRON 4 MG/2 ML INJ ONE (11:05)
[2021-07-18] MEDS ORDERED: SODIUM CHLORIDE 0.9% IRR 1,500 ML BOTTLE IR ONE (11:22)
--- NOTE | 2021-07-18 12:36 | Event Note ---
Date: 07/18/21 Intaoperative consult requested by Dr. Villareal to evaluate appendix. Patient with ruptured ectopic involving right fallopian tube. Appendix with inflammatory adhesion to right ovary. Adhesion taken down bluntly. Appendix grasped gently with rayne clamp. Appendix is normal. No inflammation, dilatation. Mild induration of distal most periappendiceal fat at point it was loosely adhesed to ovary. Do not recommend appendectomy at this time. Remainder of procedure completed by Dr. Villareal.
[2021-07-18] MEDS ORDERED: BUPIVACAINE/PF (0.5%) 5 MG/1 ML 30 ML VIAL INFILTRATI ONE ×2 (12:49→12:50)
[2021-07-18] MEDS ORDERED: LACTATED RINGERS 1,000 ML ONE (13:16)
[2021-07-18] MEDS ORDERED: HYDROmorphone 1 MG/1 ML INJ IV PRN (13:29)
[2021-07-18] MEDS ORDERED: ACETAMINOPHEN 325 MG TAB PO PRN (13:29)
[2021-07-18] MEDS ORDERED: IBUPROFEN 800 MG TAB PO PRN (13:29)
[2021-07-18] MEDS: HYDROmorphone 1 MG/1 ML INJ IV PRN ×2 (13:30→14:10)
--- NOTE | 2021-07-18 13:41 | Procedure Note ---
Date of procedure: 07/18/21 Pre-op diagnosis: ruptured ectopic with hemaperitoneum Post-op diagnosis: same Procedure: Procedure: Exp lap with right salpingectomy adn introp consult for Dr. Dye, gen surgery to evaluate adherent appendix to ovary and posterior uterine wall After the risks, benefits and alternatives of procedure were discussed in detail, pt signed consents and was taken to the OR. Pt was given general anesthesia and same was adequate, she prepped and draped in supine position and manuel cath placed and draining clear urine. Time out was done Pfannestiel approx 6cm made above her previous c/section scar and same taken sharply to the rectus fascia and then extended using electrocautery. The fascia was superiorly and inferiorly bluntly and also with electrocautery. The rectus muscle was in the mid-line and the peritoneal cavity was entered sharply. The incision was extended superiorly and inferiorly sharply with good visualization of the bladder. Hemoperitoneum was suctioned and clots removed enough to evaluate the right adnexa and the ectopic seen. Maryse clamps were then placed across the mesosalpinx to include the pregnany in the tube and it's fimbriated end. The ectopic was removed intact and free end remaining doubly ligated using 0-vicryl x2 with excellent hemostasis. The remaining clots were then removed from the abdomen and appendix noted to be adherent to right ovary and posterior surface of uterine serosa. Blunt separation from the posterior uterine serosa occurred during irrigation and suctioning. Intraop consult done by me to Dr. Banegas to evaluate appendix for removal if inflammed. Dr. Banegas had to drive to the hospital in inclement weather and when evaluated, she stated the patient should be fine and with antibiotics, this condition would resolve without appendectomy. Copious irrigation of the pelvis done with normal saline and right pedicle remain hemostatic. The anterior peritoneium, scar and muscle then closed with 0-vicryl in a continuous fashion. The fascia closed from left side to the right using 0-vicryl in a continous fashion. Copious irrigation done to to subcutaneous tissue and this was approximated wtih 3-0 vicryl after local Marcaine 0.5% placed for additional pain mgt. Skin was closed with 4-0 monocryl in a subcutaneous fashion and steristrips and pressure dressing placed above. Sponge, lap, instrument and needle counts correct x2 Pt extubated and taken to recovery room stable Pathology: right ectopic preg ruptured still in the right fallopian tube INTAKE: 2000cc OUTPUT: 350cc EBL: 250cc hemoperitoneum Findings: Dilated right fallopian tube with preg and active bleeding with 200cc of hemoperitoneum and clots 50cc. Appendix adherent to right ovary and posterior uterine serosa. Normal left fallopian tube. Normal ovaries bilaterally. Anesthesia: GETA Surgeon: YUSRA MARTINEZ (Intra op consult to gen surg Dr. Dye) Estimated blood loss: other (250cc hemoperitoneum) Pathology: list (right fallopian tube with preg and fibriae) Specimen disposition: to lab Condition: stable Disposition: floor
[2021-07-18] MEDS ORDERED: ONDANSETRON 4 MG/2 ML INJ IV PRN (14:00)
[2021-07-18] MEDS ORDERED: ceFAZolin/NS 1 GM/50 ML 1 GM/50 ML BAG IV SCH (14:00)
[2021-07-18] MEDS ORDERED: D5W/0.45% NACL/KCL 20 MEQ 20 MEQ/1,000 ML BAG IV SCH (14:00)
[2021-07-18] MEDS: MORPHINE 4 MG/1 ML INJ IV PRN ×2 (15:30→23:15)
[2021-07-18] MEDS: oxyCODONE /ACETAMINOPHEN 5-325MG TAB PO PRN (18:39)
[2021-07-18] MEDS: METOCLOPRAMIDE 10 MG/2 ML INJ IV SCH (19:45)
--- NOTE | 2021-07-18 21:09 | Event Note ---
Date: 07/18/21 POST OP: pt evaluated and she was resting comfortable. Pain controlled with meds. pt states that she has voided 2 times. Denies vag bleeding. Denies nausea or vomiting and has tolerated clears diet. pt is breathing unlabored. Abdomen soft and dressing C/D/I. Temp max noted earlier at 2pm was 100 and then 99, pt told she will be discharged 24hrs post her last fever. Will continue IV fluid hydration, encouraged incentive spirometry use and routine post op care. Ancef to be given x3 doses and same changed to 2gm each dose. All questions encouraged and answered.
[2021-07-19] MEDS: METOCLOPRAMIDE 10 MG/2 ML INJ IV SCH ×2 (01:11→22:00)
[2021-07-19] MEDS: KETOROLAC 30 MG/1 ML INJ IV PRN (02:42)
[2021-07-19] MEDS: oxyCODONE /ACETAMINOPHEN 5-325MG TAB PO PRN ×3 (05:06→20:30)
[2021-07-19 06:54] LABS: Basophils % (Auto) 0.3 % (0.0-1.8); Hematocrit 26.4 % (30.3-42.9); Hemoglobin 8.6 gm/dl (10.1-14.3); Lymphocytes # (Auto) 2.5 K/mm3 (1.2-5.4); Lymphocytes % (Auto) 21.2 % (13.4-35.0); Mean Corpuscular HGB Conc 33 % (30-34); Mean Corpuscular Volume 79 fl (79-97); Monocytes # (Auto) 1.1 K/mm3 (0.0-0.8); Monocytes % (Auto) 9.6 % (0.0-7.3); Platelet Count 320 K/mm3 (140-440); Red Blood Count 3.33 M/mm3 (3.65-5.03); Red Cell Distribution Width 13.5 % (13.2-15.2)
[2021-07-19 07:10] LABS: Blood Urea Nitrogen 5 mg/dL (7-17); Calcium 8.5 mg/dL (8.4-10.2); Hemolysis Index 0
[2021-07-19 07:28] LABS: BUN/Creatinine Ratio 25
--- NOTE | 2021-07-19 08:51 | Progress Note ---
Assessment and Plan POD#1 Exp lap with right salpingectomy for ruptured ectopic, pain not well controlled, asymptomatic anemia 1. Pt educated to ask for pain med that is available. 2. Will remove dressing tomorrow 3. Diet education given and pt told she may have family bring her the diet of her choice if not satisfied with the hospital food 4. pt also told that all pts admitted get the covid test which will be given to her later this morning 5. Will give iron and vit C supplements with fall in hgb. 6. Also HCG decrease expected. Pathology pending All questions encouraged and answered Subjective Date of service: 07/19/21 Principal diagnosis: POD#1 Exp lap with right salpingectomy Interval history: When I arrived in the room pt was holding her incision and when asked she states she was trying not to take any pain med and hold out as long as she could. pt has been voiding without difficulty. She also ahs passed flatus. pt doesn't like our food at the hospital and would prefer something else. Denies N/V/F/C or shortness of breath, palpitation or dizziness. Objective - Constitutional Vitals: Vital Signs - 12hr 07/18/21 07/18/21 07/18/21 21:31 23:15 23:45 Temperature Pulse Rate Pulse Rate [ 80 Apical] Respiratory 18 18 18 Rate Blood Pressure Blood Pressure [Left] O2 Sat by Pulse 100 Oximetry 07/19/21 07/19/21 07/19/21 00:17 02:42 03:12 Temperature 98.8 F Pulse Rate 105 H Pulse Rate [ Apical] Respiratory 20 18 18 Rate Blood Pressure 155/75 Blood Pressure [Left] O2 Sat by Pulse 97 Oximetry 07/19/21 07/19/21 07/19/21 04:40 05:06 06:06 Temperature 98.6 F Pulse Rate 86 Pulse Rate [ Apical] Respiratory 20 18 18 Rate Blood Pressure Blood Pressure 132/76 [Left] O2 Sat by Pulse 100 Oximetry General appearance: Present: mild distress - Respiratory Respiratory effort: normal - Breasts Breasts: deferred - Cardiovascular Rhythm: regular Extremities: No edema - Gastrointestinal General gastrointestinal: Present: soft, non-tender, hypoactive bowel sounds, other (Incision with Dressing C/D/I) - Genitourinary Female genitourinary: other (peripad without vag bleed) - Integumentary Integumentary: warm, dry - Neurologic Neurologic: moves all extremities - Psychiatric Psychiatric: cooperative - Labs CBC & Chem 7: 07/19/21 06:40 07/19/21 06:40 Labs: Abnormal lab results 07/19/21 07/19/21 07/19/21 Range/Units 06:40 06:40 06:40 WBC 11.8 H (4.5-11.0) K/mm3 RBC 3.33 L (3.65-5.03) M/mm3 Hgb 8.6 L (10.1-14.3) gm/dl Hct 26.4 L (30.3-42.9) % MCH 26 L (28-32) pg [place] % (Auto) 9.6 H (0.0-7.3) % [place] # (Auto) 1.1 H (0.0-0.8) K/mm3 Seg Neutrophils # 8.1 H (1.8-7.7) K/mm3 Sodium 136 L (137-145) mmol/L Potassium 3.4 L (3.6-5.0) mmol/L Carbon Dioxide 19 L (22-30) mmol/L BUN 5 L (7-17) mg/dL Creatinine 0.2 L (0.6-1.2) mg/dL Glucose 111 H (65-100) mg/dL HCG, Quant 1452 H (0-4) mIU/mL Medications & Allergies - Medications Allergies/Adverse Reactions: Allergies No Known Allergies Allergy (Verified 07/18/21 09:47) Home Medications: Home Medications Medication Instructions Recorded Confirmed Last Taken Type Ibuprofen [Motrin] 800 mg PO Q8HR PRN 21 Days #40 07/18/21 Unknown Rx tablet oxyCODONE /ACETAMINOPHEN [Percocet 1 tab PO Q4HR PRN 21 Days #30 tab 07/18/21 Unknown Rx 5/325] Active Medications: Generic Name Dose Route Start Last Admin Trade Name Freq PRN Reason Stop Dose Admin Acetaminophen 650 mg 07/18/21 13:29 Acetaminophen 325 Mg Tab PO Q4H PRN Pain MILD(1-3)/Fever >100.5/MURRAY Hydromorphone HCl 0.5 mg 07/18/21 14:00 07/18/21 14:10 Hydromorphone 1 Mg/1 Ml Inj IV 0.5 mg Q10MIN PRN Administration Pain , Severe (7-10) Hydromorphone HCl 0.5 mg 07/18/21 13:29 Hydromorphone 1 Mg/1 Ml Inj IV Q3H PRN Pain , Severe (7-10) Potassium Chloride/Dextrose/Sod Cl 20 meq in 1,000 mls @ 125 mls/hr 07/18/21 14:00 D5w/0.45% Nacl/Kcl 20 Meq IV DIRECT MG Cefazolin Sodium 2 gm/ Sodium 100 mls @ 200 mls/hr 07/18/21 23:00 07/18/21 23:08 Chloride IV 07/19/21 15:29 200 mls/hr Q8H MG Administration Protocol Ibuprofen 800 mg 07/18/21 13:29 Ibuprofen 800 Mg Tab PO Q8H PRN Pain, Moderate (4-6) Ketorolac Tromethamine 15 mg 07/18/21 13:29 07/19/21 02:42 Ketorolac 30 Mg/1 Ml Inj IV 15 mg Q6H PRN Administration Pain, Moderate (4-6) Metoclopramide HCl 10 mg 07/18/21 14:00 07/19/21 01:11 Metoclopramide 10 Mg/2 Ml Inj IV 07/19/21 20:01 Not Given Q6H [facility] Morphine Sulfate 4 mg 07/18/21 13:29 07/18/21 23:15 Morphine 4 Mg/1 Ml Inj IV 4 mg Q4H PRN Administration Pain , Severe (7-10) Ondansetron HCl 4 mg 07/18/21 14:00 Ondansetron 4 Mg/2 Ml Inj IV ONCE PRN Nausea And Vomiting Oxycodone/Acetaminophen 2 tab 07/18/21 13:29 07/19/21 05:06 Oxycodone /Acetaminophen 5-325mg Tab PO 2 tab Q6H PRN Administration Pain, Moderate (4-6)
[2021-07-19] MEDS: FERROUS SULFATE 325 MG TAB PO SCH ×2 (09:34→21:53)
[2021-07-19] MEDS: ASCORBIC ACID 500 MG TAB PO SCH ×2 (09:34→21:53)
[2021-07-19] MEDS ORDERED: FLU VACC QUAD 2021-22(6MOS UP)/PF 60 MCG/0.5 ML SYRINGE IM ONE (12:00)
[2021-07-19] MEDS ORDERED: MAGNESIUM HYDROXIDE (MOM) ORAL LIQD UDC PO PRN (18:20)
[2021-07-19] MEDS: MORPHINE 4 MG/1 ML INJ IV PRN (21:53)
[2021-07-20] MEDS: oxyCODONE /ACETAMINOPHEN 5-325MG TAB PO PRN ×2 (03:47→10:04)
[2021-07-20] MEDS: KETOROLAC 30 MG/1 ML INJ IV PRN (07:56)
[2021-07-20 08:12] LABS: Basophils % (Auto) 0.2 % (0.0-1.8); Eosinophils # (Auto) 0.1 K/mm3 (0.0-0.4); Eosinophils % (Auto) 1.1 % (0.0-4.3); Hematocrit 26.8 % (30.3-42.9); Hemoglobin 8.7 gm/dl (10.1-14.3); Lymphocytes # (Auto) 3.7 K/mm3 (1.2-5.4); Lymphocytes % (Auto) 45.9 % (13.4-35.0); Mean Corpuscular HGB Conc 32 % (30-34); Mean Corpuscular Volume 80 fl (79-97); Monocytes # (Auto) 0.9 K/mm3 (0.0-0.8); Monocytes % (Auto) 11.3 % (0.0-7.3); Platelet Count 332 K/mm3 (140-440); Red Blood Count 3.37 M/mm3 (3.65-5.03); Red Cell Distribution Width 13.5 % (13.2-15.2)
[2021-07-20 08:37] VITALS: BP 143/81
--- NOTE | 2021-07-20 09:48 | Progress Note ---
Assessment and Plan POD#2 Exp lap with right salpingectomy, Failed MTX treatment, asymptomatic anemia and pain well controlled 1. Will discharge pt home on percocet, motrin and iron supplement 2. Pt to be seen in clinic in 1wk for labs. All questions encouraged and answered Subjective Date of service: 07/20/21 Principal diagnosis: POD#2 Exp lap with right salpingectomy Interval history: pt states that her pain is controlled with meds and she is ready to go home. Denies N/V/F/C; pt has scant vag spotting. Tolerates diet well; Voiding without difficulty Objective - Constitutional Vitals: Vital Signs - 12hr 07/19/07/20/07/20/21 21:53 00:08 03:47 Temperature 98.2 F Pulse Rate 92 H Respiratory 19 20 18 Rate Blood Pressure 138/65 Blood Pressure [Left] O2 Sat by Pulse 95 Oximetry 07/20/21 07/20/21 07/20/21 05:14 07:48 08:34 Temperature 98.1 F 97.9 F Pulse Rate 92 H 91 H Respiratory 20 18 Rate Blood Pressure 136/67 Blood Pressure 143/81 [Left] O2 Sat by Pulse 91 98 94 Oximetry General appearance: Present: no acute distress - Neck Neck: normal ROM - Respiratory Respiratory effort: normal - Breasts Breasts: deferred - Cardiovascular Rhythm: regular Extremities: No edema - Gastrointestinal General gastrointestinal: Present: soft, non-tender, other (Incision C/D/I with steristrips) - Neurologic Neurologic: moves all extremities - Psychiatric Psychiatric: cooperative - Labs CBC & Chem 7: 07/20/21 07:50 07/19/21 06:40 Labs: Abnormal lab results 07/20/21 Range/Units 07:50 RBC 3.37 L (3.65-5.03) M/mm3 Hgb 8.7 L (10.1-14.3) gm/dl Hct 26.8 L (30.3-42.9) % MCH 26 L (28-32) pg Lymph % (Auto) 45.9 H (13.4-35.0) % [place] % (Auto) 11.3 H (0.0-7.3) % [place] # (Auto) 0.9 H (0.0-0.8) K/mm3 Medications & Allergies - Medications Allergies/Adverse Reactions: Allergies No Known Allergies Allergy (Verified 07/18/21 09:47) Home Medications: Home Medications Medication Instructions Recorded Confirmed Last Taken Type Ibuprofen [Motrin] 800 mg PO Q8HR PRN 21 Days #40 07/18/21 Unknown Rx tablet oxyCODONE /ACETAMINOPHEN [Percocet 1 tab PO Q4HR PRN 21 Days #30 tab 07/18/21 Unknown Rx 5/325] Active Medications: Generic Name Dose Route Start Last Admin Trade Name Freq PRN Reason Stop Dose Admin Acetaminophen 650 mg 07/18/21 13:29 Acetaminophen 325 Mg Tab PO Q4H PRN Pain MILD(1-3)/Fever >100.5/MURRAY Ascorbic Acid 500 mg 07/19/21 10:00 07/19/21 21:53 Ascorbic Acid 500 Mg Tab PO 500 mg BID MG Administration Ferrous Sulfate 325 mg 07/19/21 10:00 07/19/21 21:53 Ferrous Sulfate 325 Mg Tab PO 325 mg BID MG Administration Hydromorphone HCl 0.5 mg 07/18/21 14:00 07/18/21 14:10 Hydromorphone 1 Mg/1 Ml Inj IV 0.5 mg Q10MIN PRN Administration Pain , Severe (7-10) Hydromorphone HCl 0.5 mg 07/18/21 13:29 Hydromorphone 1 Mg/1 Ml Inj IV Q3H PRN Pain , Severe (7-10) Potassium Chloride/Dextrose/Sod Cl 20 meq in 1,000 mls @ 125 mls/hr 07/18/21 14:00 D5w/0.45% Nacl/Kcl 20 Meq IV DIRECT MG Ibuprofen 800 mg 07/18/21 13:29 07/19/21 09:34 Ibuprofen 800 Mg Tab PO 800 mg Q8H PRN Administration Pain, Moderate (4-6) Ketorolac Tromethamine 15 mg 07/18/21 13:29 07/20/21 07:56 Ketorolac 30 Mg/1 Ml Inj IV 15 mg Q6H PRN Administration Pain, Moderate (4-6) Magnesium Hydroxide 30 ml 07/19/21 18:20 07/20/21 07:56 Magnesium Hydroxide (Mom) Oral Liqd Udc PO 30 ml Q4H PRN Administration Constipation Morphine Sulfate 4 mg 07/18/21 13:29 07/19/21 21:53 Morphine 4 Mg/1 Ml Inj IV 4 mg Q4H PRN Administration Pain , Severe (7-10) Ondansetron HCl 4 mg 07/18/21 14:00 Ondansetron 4 Mg/2 Ml Inj IV ONCE PRN Nausea And Vomiting Oxycodone/Acetaminophen 2 tab 07/18/21 13:29 07/20/21 03:47 Oxycodone /Acetaminophen 5-325mg Tab PO 2 tab Q6H PRN Administration Pain, Moderate (4-6)
[2021-07-20] MEDS: ASCORBIC ACID 500 MG TAB PO SCH (10:04)
[2021-07-20] MEDS: FERROUS SULFATE 325 MG TAB PO SCH (10:04)
[2021-07-20] MEDS ORDERED: POTASSIUM CHLORIDE ER 20 MEQ TAB PO NR (10:30)
--- NOTE | 2021-07-20 13:45 | Discharge Summary ---
Providers - Providers Date of Admission: 07/19/21 12:49 Date of discharge: 07/20/21 Attending physician: YUSRA MARTINEZ 07/18/21 08:41 Consult to Physician [CONS] Urgent Comment: Consulting Provider: YUSRA MARTINEZ Physician Instructions: Reason For Exam: ectopic Primary care physician: TELLER Hospitalization Reason for admission: other (ruptured ectopic ; H/O C/Section x1) Procedure: other (exploratory laparotomy and right salpingectomy with ruptured right ectopic ) complications: none Discharge diagnosis: other (ruptured right ectopic and right salpingectomy done via abd exploratory laparatomy) Hospital course: ER consult for this patient done with ruptured ectopic , HCG quant 5246 and pt received methotrexate one week prior by another deputy court physician. Pt admitted and had uncomplicated exploratory lap and right salpingectomy. Pt has temp max 100 the same day of surgery and pt given 24hrs ancef antibiotics and pt became afebrile. On post op day#1 pain was not controlled well because pt was not asking for pain med. Pt education given and pt observed for additonal day. Pt hgb 8.6 on post op day 1 remained stable on post op day2 with asymptomatic anemia. Pt was discharged on post op day 2 with hgb 8.7stable and HCG quant 1452. Pt given percocet and motrin prn pain and iron supplement. Pt instructed to make appt for clinic in one for wound check and follow B-HCG levels. All questions encouraged and answered Condition at discharge: Good Disposition: 01 HOME / SELF CARE / HOMELESS - Discharge Diagnoses (1) Ruptured right tubal ectopic causing hemoperitoneum Status: Acute (2) Status post exploratory laparotomy Status: Acute (3) Hx of unilateral salpingectomy Status: Acute (4) Anemia Status: Acute Qualifiers: Anemia type: other cause Comment: hemoperitoneum, acute blood loss Plan - Discharge Medications Prescriptions: Ferrous Sulfate [Ferrous Sulfate 324 MG] 324 mg PO BID 30 Days #60 Ibuprofen [Motrin] 800 mg PO Q8HR PRN 21 Days #40 tablet PRN Reason: Pain, Moderate (4-6) oxyCODONE /ACETAMINOPHEN [Percocet 5/325] 1 tab PO Q4HR PRN 21 Days #30 tab PRN Reason: Pain , Severe (7-10) - Provider Discharge Summary Activity: no sex for 6 weeks Diet: routine Additional instructions: [] Smoking cessation referral if applicable(refer to patient education folder for contact #) [] Refer to [facility]'s [facility] Booklet Call your doctor immediately for: * Fever > 100.5 * Heavy vaginal bleeding ( >1 pad per hour) * Severe persistent headache * Shortness of breath * Reddened, hot, painful area to leg or breast * Drainage or odor from incision. * Keep incision clean and dry at all times and follow doctor's instructions regarding bathing/showering - Follow up plan Follow up: YUSRA MARTINEZ MD [Staff Physician] - 7 Days PRIMARY CARE, [Primary Care Provider] - 7 Days (please make appt with clinic at [place] or [facility].) Forms: [facility] Discharge Summary
== END 2021-07-20 10:40 | disposition home or self-care (01) | DRG 777 ==
LOC: ED 05:36 → OB 13:29 → OBSVTOIN 07-19 12:49
PROVIDERS: ADMIT Obstetrics & Gynecology; ATTEND Obstetrics & Gynecology
PROC: 10T20ZZ Resection of Products of Conception, Ectopic, Open Approach (ICD-10-PCS; principal; 2021-07-18)
PROC: 0UB50ZZ Excision of Right Fallopian Tube, Open Approach (ICD-10-PCS; 2021-07-18)
DX: O00.101 Right tubal pregnancy without intrauterine pregnancy (principal); Z90.79 Acquired absence of other genital organ(s); Z98.890 Other specified postprocedural states; Z20.822 Contact with and (suspected) exposure to COVID-19; D62 Acute posthemorrhagic anemia
CPT/HCPCS: 36415; 76801; 76817; 80048; 80053; 84702; 85025; 85027; 86850; 86900; 86901; 88305; G0378; J3490; J7120; Q0162; J0690; J1100; J1170; J1885; J2250; J2270; J2405; J2704; J2765; J3010; J7030; U0003

== ENCOUNTER 2022-03-28 23:19 | Emergency (ER) | payer SELFPAY ==
[2022-03-29] MEDS ORDERED: MIDAZOLAM 2 MG/2 ML INJ IM STA (00:37)
--- NOTE | 2022-03-29 00:38 | Emergency Department Report ---
ED General Adult HPI - General Chief complaint: Arrhythmia/Palpitations Stated complaint: FAST HEART BEAT Time Seen by Provider: 03/29/22 00:36 Source: patient, RN notes reviewed, old records reviewed Mode of arrival: Ambulatory Limitations: No Limitations - History of Present Illness Initial comments: This is a pleasant and cooperative 31-year-old female who states that she is not . She recreationally consumed a marijuana edible, and also consumed a red bull energy drink. This is for recreational reasons. She is not homicidal or suicidal. Afterwards, she developed a sensation of heart racing without physical pain. She is mildly anxious. She presents for evaluation for tachycardia and palpitations. She denies travel, surgery, immobilization, DVT and pulmonary embolism risk factors. She felt markedly improved after 2 mg of intra muscular midazolam. -: Sudden Consistency: now resolved Improves with: medication Worsens with: none Associated Symptoms: denies other symptoms - Related Data Previous Rx's Medication Instructions Recorded Last Taken Type Ibuprofen [Motrin] 800 mg PO Q8HR PRN 21 Days #40 07/18/21 Unknown Rx tablet oxyCODONE /ACETAMINOPHEN [Percocet 1 tab PO Q4HR PRN 21 Days #30 tab 07/18/21 Unknown Rx 5/325] Ferrous Sulfate [Ferrous Sulfate 324 mg PO BID 30 Days #60 07/20/21 Unknown Rx 324 MG] atenoloL [Tenormin] 25 mg PO DAILY #30 tab 03/29/22 Unknown Rx methIMAzole [Methimazole] 5 mg PO QDAY #30 tab 03/29/22 Unknown Rx Allergies Allergy/AdvReac Type Severity Reaction Status Date / Time No Known Allergies Allergy Verified 07/18/21 09:47 ED Review of Systems ROS: Stated complaint: FAST HEART BEAT Other details as noted in HPI Comment: All other systems reviewed and negative Cardiovascular: palpitations. denies: chest pain Psychiatric: anxiety. denies: homicidal thoughts, suicidal thoughts ED Past Medical Hx - Past Medical History Previous Medical History?: Yes Hx Seizures: Yes (Ghazal) Additional medical history: G2, P1 - Surgical History Past Surgical History?: Yes Additional Surgical History: C section - Social History Smoking Status: Unknown if ever smoked Substance Use Type: Other - Medications Home Medications: Home Medications Medication Instructions Recorded Confirmed Last Taken Type Ibuprofen [Motrin] 800 mg PO Q8HR PRN 21 Days #40 07/18/21 Unknown Rx tablet oxyCODONE /ACETAMINOPHEN [Percocet 1 tab PO Q4HR PRN 21 Days #30 tab 07/18/21 Unknown Rx 5/325] Ferrous Sulfate [Ferrous Sulfate 324 mg PO BID 30 Days #60 07/20/21 Unknown Rx 324 MG] atenoloL [Tenormin] 25 mg PO DAILY #30 tab 03/29/22 Unknown Rx methIMAzole [Methimazole] 5 mg PO QDAY #30 tab 03/29/22 Unknown Rx ED Physical Exam - General Limitations: No Limitations General appearance: alert, anxious - Head Head exam: Present: atraumatic, normocephalic - Eye Eye exam: Present: normal appearance, EOMI. Absent: nystagmus - ENT ENT exam: Present: normal exam, normal orophraynx, mucous membranes moist, normal external ear exam - Neck Neck exam: Present: normal inspection, full ROM. Absent: tenderness, meningismus - Respiratory Respiratory exam: Present: normal lung sounds bilaterally. Absent: respiratory distress, wheezes, rales, rhonchi, stridor - Cardiovascular Cardiovascular Exam: Present: normal rhythm, tachycardia, normal heart sounds. Absent: bradycardia, irregular rhythm, systolic murmur, diastolic murmur, rubs, gallop - GI/Abdominal GI/Abdominal exam: Present: soft. Absent: distended, tenderness, guarding, rebound, rigid, pulsatile mass - Extremities Exam Extremities exam: Present: normal inspection, full ROM, other (2+ pulses noted in the bilateral upper and lower extremities. There is no palpable cord. n egative Homans sign. Muscular compartments are soft. The pelvis is stable.). Absent: pedal edema, calf tenderness - Back Exam Back exam: Present: normal inspection, full ROM. Absent: tenderness, CVA tenderness (R), CVA tenderness (L), paraspinal tenderness, vertebral tenderness - Neurological Exam Neurological exam: Present: alert, oriented X3, normal gait, other (No facial droop. Tongue midline. Extraocular movements intact bilaterally. Facial sensation intact to light touch in V1, V2, V3 distribution bilaterally. 5 and a 5 strength in 4 extremities. Sensation intact to light touch in 4 extremities.). Absent: motor sensory deficit - Psychiatric Psychiatric exam: Present: anxious. Absent: homicidal ideation, suicidal ideation - Skin Skin exam: Present: warm, dry, intact, normal color. Absent: rash ED Course Vital Signs 03/28/22 03/29/22 03/29/22 23:22 00:35 00:46 Temperature 98.3 F Pulse Rate 182 H 125 H Respiratory 20 24 29 H Rate Blood Pressure 173/98 158/84 O2 Sat by Pulse 100 98 98 Oximetry O2 Sat by Pulse Oximetry [ Digit-Finger] 03/29/22 03/29/22 03/29/22 01:00 01:16 01:30 Temperature Pulse Rate 111 H 110 H 109 H Respiratory 27 H 28 H 25 H Rate Blood Pressure 129/63 128/69 119/64 O2 Sat by Pulse 97 97 97 Oximetry O2 Sat by Pulse Oximetry [ Digit-Finger] 03/29/22 03/29/22 03/29/22 01:46 02:00 02:16 Temperature Pulse Rate 104 H 100 H 96 H Respiratory 28 H 25 H 26 H Rate Blood Pressure 131/65 130/69 118/69 O2 Sat by Pulse 98 98 97 Oximetry O2 Sat by Pulse Oximetry [ Digit-Finger] 03/29/22 03/29/22 03/29/22 02:30 02:30 02:46 Temperature Pulse Rate 96 H 97 H Respiratory 26 H 25 H Rate Blood Pressure 124/68 126/56 O2 Sat by Pulse 97 98 Oximetry O2 Sat by Pulse 100 Oximetry [ Digit-Finger] - Reevaluation(s) Reevaluation #1: 03/29/22 01:36 Differential diagnosis, including but not limited to: Electrolyte derangement, thyroid derangement, marijuana ingestion Assessment and plan: 31-year-old female status post recreational edible ingestion, also took a stimulant, a red bull energy drink. After 2 mg of midazolam, heart rate currently 106 bpm, and blood pressure 115/65 mmHg. The patient is clinically sober, with a GCS of 15, and she is not homicidal or suicidal. She does not meet criteria for 1013 hold or 2013 hold. She is advised to abstain from recreational edible consumption. Her laboratory studies thus far are essentially unremarkable. Currently awaiting TSH. The patient denies DVT and pulmonary embolism risk factors, she is low risk by Wells criteria for pulmonary embolism. Reevaluation #2: 03/29/22 01:41 Laboratory studies suggestive of hyperthyroidism. Awaiting test 03/29/22 02:30 Patient is not . We will add on CBC, and liver panel, and assuming unremarkable, initiate patient on atenolol, and methimazole. Patient will need to follow-up with outpatient primary care and/or endocrinology. She is currently resting comfortably in her stretcher, and in no acute distress. 03/29/22 03:16 Final reassessment. CBC, liver panel unremarkable. Discussed findings with terra lópez. She is agreeable to the plan of care. She specifically understands that she is not to get while taking the methimazole. She understands that she is to follow-up with outpatient primary care and/or endocrinology, for possible hyperthyroidism. Return precautions are reviewed. All questions answered. Heart rate 92 bpm. - Pulse Oximetry Interpretation Digit-Finger Initial Pulse Oximetry Readin O2 Sat by Pulse Oximetry: 100 Actions Taken: none ED Medical Decision Making - Lab Data Result diagrams: 03/29/22 00:41 03/29/22 00:41 Vital Signs 03/28/22 23:22 Temperature 98.3 F Pulse Rate 182 H Respiratory 20 Rate Blood Pressure 173/98 O2 Sat by Pulse 100 Oximetry Lab Results 03/29/22 03/29/22 03/29/22 Range/Units 00:41 00:41 00:41 Hgb 11.7 (10.1-14.3) gm/dl Hct 35.8 (30.3-42.9) % Plt Count 336 (140-440) K/mm3 Sodium 139 (137-145) mmol/L Potassium 3.8 (3.6-5.0) mmol/L Chloride 106.5 (98-107) mmol/L Carbon Dioxide 20 L (22-30) mmol/L Anion Gap 16 mmol/L BUN 11 (7-17) mg/dL Creatinine 0.3 L (0.6-1.2) mg/dL Estimated GFR > 60 ml/min BUN/Creatinine Ratio 37 % Glucose 173 H (65-100) mg/dL Calcium 9.5 (8.4-10.2) mg/dL Magnesium 2.00 (1.7-2.3) mg/dL Total Creatine Kinase 60 (30-135) units/L Salicylates < 0.3 L (2.8-20.0) mg/dL Acetaminophen (10.0-30.0) ug/mL Plasma/Serum Alcohol (0-0.07) % 03/29/22 03/29/22 Range/Units 00:41 00:41 Hgb (10.1-14.3) gm/dl Hct (30.3-42.9) % Plt Count (140-440) K/mm3 Sodium (137-145) mmol/L Potassium (3.6-5.0) mmol/L Chloride (98-107) mmol/L Carbon Dioxide (22-30) mmol/L Anion Gap mmol/L BUN (7-17) mg/dL Creatinine (0.6-1.2) mg/dL Estimated GFR ml/min BUN/Creatinine Ratio % Glucose (65-100) mg/dL Calcium (8.4-10.2) mg/dL Magnesium (1.7-2.3) mg/dL Total Creatine Kinase (30-135) units/L Salicylates (2.8-20.0) mg/dL Acetaminophen 5.0 L (10.0-30.0) ug/mL Plasma/Serum Alcohol < 0.01 (0-0.07) % - EKG Data -: EKG Interpreted by Me Rate: tachycardia - EKG Data 03/29/22 01:37 The EKG is interpreted at 23: 24 Tachycardia, sinus, rate 176 bpm. Normal axis, QTC 4 3 0 ms, high left ventricular voltage. This is an abnormal EKG. This is not a STEMI Critical care attestation.: If time is entered above; I have spent that time in minutes in the direct care of this critically ill patient, excluding procedure time. ED Disposition Clinical Impression: Caffeine adverse reaction, Marijuana use, Palpitations, Abnormal TSH Disposition: 01 HOME / SELF CARE / HOMELESS Is pt being admited?: No Does the pt Need Aspirin: No Condition: Good Instructions: Hyperthyroidism Additional Instructions: Patient is also found to have evidence of possible hyperthyroidism. Please take the medications as prescribed. Please follow-up as soon as possible with an outpatient primary care doctor or remediation consultant as soon as possible. When taking methimazole, it is absolutely important that the patient not attempt to get . This medication is not safe in . Please follow-up with an outpatient mental health specialist within the next week. Avoid consumption of alcohol, tobacco, smoke products and recreational drugs. Avoid consumption of caffeine, energy drinks, red bull, stimulants, and marijua na. Please return to the emergency room right away with new pain, worsened pain, migration of pain, projectile vomiting, change in mental status, confusion, inability tolerate liquid feeds, new, worsened or different symptoms not present on the initial emergency room evaluation professional and Agency Contacts To help [facility] (23/01) [place] Crisis Line: Suicide Prevention Line: Crisis Text Line: Text ``START to 548434 Emergency: 911 Outpatient COMMUNITY Behavioral Health Resources: [place]: [facility] [address] [place], [place] [address] [place]: [facility] [address] [place] [address] Monday thru Monday - 8am - 5pm Call to schedule an assessment for mental health and substance abuse programs [facility] Address: [address] [place] [address] Monday thru Monday- 7am-2pm [facility] Address: [address] [place] [address] Monday thru Monday: 8:30AM-5PM Prescriptions: methIMAzole [Methimazole] 5 mg PO QDAY #30 tab atenoloL [Tenormin] 25 mg PO DAILY #30 tab Referrals: [facility] [Provider Group] - 3-5 Days [facility] [Outside] - 3-5 Days [facility] [Outside] - 3-5 Days Forms: Work/School Release Form(ED)
[2022-03-29 01:18] LABS: Hematocrit 35.8 % (30.3-42.9); Hemoglobin 11.7 gm/dl (10.1-14.3)
[2022-03-29 01:27] LABS: Blood Urea Nitrogen 11 mg/dL (7-17); Calcium 9.5 mg/dL (8.4-10.2); Hemolysis Index 6
[2022-03-29 01:32] LABS: BUN/Creatinine Ratio 37
[2022-03-29 02:36] LABS: Basophils % (Auto) 0.3 % (0.0-1.8); Eosinophils # (Auto) 0.1 K/mm3 (0.0-0.4); Eosinophils % (Auto) 0.8 % (0.0-4.3); Hemoglobin 11.6 gm/dl (10.1-14.3); Lymphocytes # (Auto) 1.8 K/mm3 (1.2-5.4); Lymphocytes % (Auto) 26.7 % (13.4-35.0); Mean Corpuscular HGB Conc 32 % (30-34); Mean Corpuscular Volume 80 fl (79-97); Monocytes # (Auto) 0.7 K/mm3 (0.0-0.8); Monocytes % (Auto) 10.1 % (0.0-7.3); Platelet Count 351 K/mm3 (140-440); Red Cell Distribution Width 13.4 % (13.2-15.2)
[2022-03-29 02:45] LABS: Alanine Aminotransferase 21 units/L (7-56); Albumin 4.2 g/dL (3.9-5)
[2022-03-29 03:09] LABS: Bilirubin,Direct < 0.2 mg/dL (0-0.2)
[2022-03-29 03:51] VITALS: BP 119/55
--- NOTE | 2022-04-01 12:40 | Electrocardiograph Report ---
[facility] Test Date: 2022-03-28 Test Time: 23:24:54 Pat Name: ADI GLASS Department: Room: Gender: F Swimming Pool Service Technician: TREVOR : 1990 Requested By: JETHRO ANDREWS Order Number: [id number] Reading MD: Raul Lopez Measurements Intervals [place] Rate: 176 P: 35 [place]: 117 QRS: 28 QRSD: 83 T: 75 QT: 309 QTc: 530 Interpretive Statements Sinus tachycardia Left atrial enlargement Repol abnrm suggests ischemia, diffuse leads Prolonged QT interval No previous ECG available for comparison Electronically Signed On 04-01-2022 9:40:29 PDT by Raul Lopez
== END 2022-03-29 03:50 | disposition home or self-care (01) ==
LOC: ED 23:19
DX: R00.2 Palpitations (principal); T43.615A Adverse effect of caffeine, initial encounter; F12.10 Cannabis abuse, uncomplicated; Q89.9 Congenital malformation, unspecified; R56.9 Unspecified convulsions; Y92.89 Other specified places as the place of occurrence of the external cause
CPT/HCPCS: 36415; 80048; 80076; 82550; 83735; 84439; 84443; 84702; 85014; 85018; 85025; 85049; 93005; 96372; 99283; J2250; 80320; G0480